=== PATIENT | male | born 1985 | race Two or more races ===

== ENCOUNTER 2020-04-08 15:52 | Outpatient (REF) | payer OTHER, SELFPAY | END 2020-04-08 15:53 | disposition home or self-care (01) | LOC: HO.LNP 15:52 | PROVIDERS: Visit Provider Physician Assistant Medical | DX: Z20.822 Contact with and (suspected) exposure to COVID-19 (principal) | CPT/HCPCS: U0003 ==

== ENCOUNTER 2025-02-19 15:17 | Emergency (ER) | payer MEDICAID, SELFPAY ==
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
[2025-02-19] VITALS (10 sets, daily range): BP systolic 66–135; BP diastolic 33–77; PULSE 40–66; RESP 12–20; TEMP 36.5–36.6; O2SAT 99–100; BMI 25.3
--- NOTE | ~2025-02-19 | XR_ITS ---
EXAMINATION: XR CHEST CLINICAL INFORMATION: weakness COMPARISON: None available. TECHNIQUE: AP portable view of the chest was obtained. FINDINGS: The cardiac, hilar, and mediastinal contours are normal. The lungs are clear bilaterally. No pneumothorax or effusion. No focal osseous or soft tissue abnormality. XR/XR chest 1V IMPRESSION: No active pulmonary disease. Electronically signed by: Toan Cummings MD 02/19/2025 04:20 PM [facility]
--- NOTE | 2025-02-19 15:17 | ED_ITS ---
HPI - General Adult General Chief complaint: General Medical Stated complaint: Lethargic Time Seen by Provider: 02/19/25 16:09 Source: patient, RN notes reviewed and old records reviewed Mode of arrival: ambulatory Limitations: no limitations History of Present Illness ED Provider: Debbie Guidry PA-C HPI narrative: 39-year-old female found to be hypotensive and bradycardic during a pre- appointment visit elsewhere and was sent to the ED for evaluation. Initial vitals in ED: BP 112/70 mmHg, HR 42 bpm. She reports having been awake >24 hours after working a 3 PM?7:15 AM overnight shift and had not slept before coming in. Denies pain, headache, dizziness, shortness of breath, fever, chills, urinary symptoms, recent illness, or recent falls. She notes diarrhea and feeling very tired. No daily prescription medications. No prior history of significant hypotension. Substance use: admits intranasal fentanyl and methadone use; denies IV drug use. Urine tox initially positive for fentanyl, methadone, and cocaine; repeat sample negative. She agrees to speak with a heel seat laster. No known past medical history; no regular medications; no surgical history; allergies (details not specified). Review of Systems: ? Constitutional: positive for fatigue; denies fever or chills. ? Cardiovascular: denies chest pain or palpitations. ? Respiratory: denies shortness of breath. ? Gastrointestinal: positive for diarrhea; denies abdominal pain. ? Genitourinary: denies dysuria or other urinary symptoms. ? Neurologic: denies headache or dizziness. ? Musculoskeletal: no recent falls. ? Psychiatric: denies suicidal or homicidal ideation. Related Data Allergies Allergy/AdvReac Type Severity Reaction Status Date / Time No Known Allergies Allergy Verified 02/19/25 15:23 Review of Systems 2 Review of Systems: Yes all other systems are reviewed and are negative PMFSH Past Medical History Attestation statement: The following information was validated with the patient. Source: old records reviewed and nursing notes reviewed Social History Social History Smoked in Last 30 Days: Yes Use of substances other than those prescribed or required for medical reasons: No Advance Directives: No Advance Directives Information Provided: No Do you have a plan to hurt others: No Plan Patient : No Physical Exam ED Exam Exam: ? General: tired-appearing female, arousable, no acute distress. ? HEENT: mucous membranes dry; extra-ocular movements intact; baseline left ?lazy? eye, vision otherwise grossly intact. Pupils pinpoint 3mm each ? Neck: supple, no thyromegaly. ? Cardiovascular: bradycardic then improving to normal rate; regular rhythm; no murmurs noted. ? Respiratory: clear to auscultation bilaterally; no respiratory distress. ? Abdomen: soft, non-tender, no organomegaly. ? Neurologic: alert when aroused, oriented; cranial nerves II-XII grossly intact; strength 5/5 upper and lower extremities; sensation intact; negative [id number] testing. ? Extremities: no edema. ? Skin: warm, dry. ? Psych: cooperative, appropriate; denies SI/HI. Vital Signs: Vital Signs - 24 hr 02/19/25 15:21 02/19/25 15:25 02/19/25 17:00 Temperature 97.7 F 97.7 F Pulse Rate 42 L 42 L 40 L Respiratory Rate 12 12 Blood Pressure 112/70 112/70 86/38 L Pulse Oximetry 99 99 Oxygen Delivery Method Room Air Room Air 02/19/25 17:01 02/19/25 17:01 02/19/25 17:33 Temperature Pulse Rate 52 54 47 L Respiratory Rate 12 Blood Pressure 72/35 L 66/33 L 127/73 Pulse Oximetry Oxygen Delivery Method 02/19/25 17:46 02/19/25 17:53 02/19/25 20:07 Temperature 97.7 F Pulse Rate 54 50 44 L Respiratory Rate 18 20 16 Blood Pressure 135/74 129/67 132/71 Pulse Oximetry 100 100 100 Oxygen Delivery Method Room Air Room Air Room Air 02/19/25 21:01 Temperature Pulse Rate 66 Respiratory Rate Blood Pressure 132/70 Pulse Oximetry Oxygen Delivery Method BMI result Body Mass Index 25.3 Course Course Course Narrative: Rapid medical examination performed in triage by Sadie Navarrete PA-C: Patient is a 39 year old assigned female at presenting to the emergency department with lethargy. Patient was at [employer] and work connection falling asleep mid sentence and being lethargic. Work connection stated the patient's blood pressure was low and heart rate was low. Detailed physical exam and review of systems are deferred to the home school liaison officer. EKG and labs ordered. Patient placed in a room. Medications Administered Discontinued Medications Generic Name Dose Route Start Last Admin Trade Name Adam PRN Reason Stop Dose Admin Lactated Ringer's 2,133 mls @ 2,133 mls/hr 02/19/25 16:33 02/19/25 17:53 Lr 30 ml/kg infuse over 1 hr (2133 ml) 02/19/25 17:32 Infused IV Infusion .Q1H ONE Lactated Ringer's 1,000 mls @ 999 mls/hr 02/19/25 19:14 02/19/25 20:20 Lr IV 02/19/25 20:14 Infused .Q1H1M ONE Infusion Naloxone HCl 8 mg 02/19/25 21:03 02/19/25 21:25 Naloxone Hcl Nasal Take Home 4 Mg Richardson NOSTRILALT 02/19/25 21:04 8 mg ONCE ONE Administration Medical Decision Making Medical Decision Making [facility] Narrative: 1635: Hypotensive but does not appear septic, will order lactic and 30 cc/hr suspected potentially due to severe dehydration does not appear sick 191: lactate normal. BP supine 122/50, sitting 96/50- will give another bolus of fluids, she appears more alert and not as tired from when she first arrived. Patient insisted on being able to provide another urine sample: she admitted to me last use of snorting fentanyl and methadone was 2-3 days ago and that she has never done cocaine. Her repeat urine tox screen was reeder negative. I do not have a better explaination for this. Patient then retracted her earlier statement of me stating that she does not do drugs. 39-year-old female with orthostatic hypotension and bradycardia likely multifactorial from dehydration, prolonged wakefulness, and recent polysubstance exposure. Vitals improved with IV fluids. No evidence of infection or metabolic derangement. Discharge planned once stable with Narcan kit and follow-up resources. Problem #1: Orthostatic hypotension / dehydration with bradycardia Assessment: Hypotension (BP as low as 66/33) and bradycardia (HR 42) on presentation, improved after two IV fluid boluses; last three BP readings normal, HR 63. BP 122/70 Plan: * IV normal saline boluses x2 given with good response. * Monitor orthostatic vitals until stable (completed in ED). * Discharge home once stable. * Return precautions for recurrent light-headedness, syncope, chest pain, or dyspnea. Problem #2: Polysubstance exposure (fentanyl, methadone, cocaine) Assessment: Initial urine toxicology positive for fentanyl, methadone, and cocaine; patient admits intranasal fentanyl/methadone use; denies IV use. Plan: * Provided Narcan for take-home use on discharge. * Offered heel seat laster / substance use counseling; patient accepted. Problem #3: Fatigue Assessment: Likely secondary to prolonged wakefulness and dehydration. Plan: * Address contributing factors as above. Medical Decision Making (MDM) Summary of Presentation & Initial Concerns: 39-year-old female presented after being found hypotensive and bradycardic during a pre-appointment visit. Initial ED vitals: BP 112/70 mmHg, HR 42 bpm. She reported fatigue, >24 hours of wakefulness after overnight shift, and recent intranasal fentanyl and methadone use. She also noted diarrhea. No chest pain, shortness of breath, fever, or dizziness. Initial urine toxicology positive for fentanyl, methadone, and cocaine; repeat negative. No prior history of significant hypotension or bradycardia. Differential Diagnosis Considered: * Dehydration (supported by dry mucous membranes, history of poor oral intake, and improvement with fluids) * Sleep deprivation (prolonged wakefulness contributing to fatigue and hemodynamic instability) * Drug effects (recent fentanyl, methadone, and possible cocaine exposure) * Infection (ruled out by lack of fever, chills, and negative labs) * Metabolic derangement (mild metabolic acidosis on VBG, otherwise unremarkable) * Cardiac conduction abnormality (no prior history, no symptoms, and no evidence of arrhythmia) Diagnostic Workup Performed: * Serial orthostatic vital signs (supine, sitting, standing) * CBC (no leukocytosis, no anemia) * VBG (HCO? 20 mmol/L, mild metabolic acidosis) * CMP (pending) * Urinalysis (negative for infection) * Urine toxicology (initially positive for fentanyl, methadone, cocaine; repeat negative) * test (pending) * Viral panel (COVID/Influenza/RSV pending) Interpretation of Results: * No evidence of infection (normal WBC, negative urinalysis) * No anemia * Mild metabolic acidosis (HCO? 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 Patient provided with Narcan kit, education on return precautions, and referral for substance use counseling. No acute medical issues requiring admission identified. Complexity of Data Reviewed, Risk Assessment, and Time Spent: Extensive review of laboratory data (CBC, VBG, CMP, urinalysis, urine toxicology), serial vital signs, and physical exam findings. Risk assessment included evaluation for cardiac, metabolic, and infectious etiologies. Time spent counseling patient regarding diagnosis, management, substance use risks, and coordination of care with heel seat laster. Overall, moderate complexity due to multiple data points, polysubstance exposure, and need for risk mitigation. Differential Diagnosis Differential Diagnoses: The differential diagnosis associated with the presentation includes See [facility] Admission/Observation Consideration of admission/observation: Escalation of care including admission/observation considered Lab Data [facility] Lab Attestation statement: I reviewed the patient's lab results. ? CBC: no leukocytosis, no anemia. ? VBG: HCO? 20 mmol/L; otherwise normal. ? Lactate: 1.4 mmol/L. ? CMP pending. ? T4: 6.3 ?g/dL. ? POC glucose 112 mg/dL. ? Urinalysis negative for infection. ? Urine toxicology: initial positive for fentanyl, methadone, cocaine; repeat sample negative. ? test pending. ? COVID/Influenza/RSV testing pending. 02/19/25 15:29 02/19/25 17:06 Labs: Lab Results 02/19/25 02/19/25 02/19/25 Range/Units 15:29 15:35 16:06 WBC 7.0 (4.8-10.8) X10*3/uL RBC 4.81 (4.20-5.50) X10*6/uL Hgb 14.9 (12.0-16.0) g/dl Hct 45.7 (37.0-47.0) % MCV 95.0 (80.0-98.0) fL MCH 31.0 (27.0-33.0) pg MCHC 32.6 (31.0-35.0) g/dl RDW 13.2 (11.0-16.0) % Plt Count 180 (160-400) X10*3/uL MPV 11.7 (9.4-12.3) fL Immature Gran % (Auto) 0.1 (0.0-0.4) % Neut % (Auto) 43.8 L (45-73) % Lymph % (Auto) 42.9 H (20-40) % [place] % (Auto) 7.5 (2-11) % Eos % (Auto) 5.0 H (0-4) % Baso % (Auto) 0.7 (0-2) % Lymph # (Auto) 3.0 (1.2-4.9) X10*3/uL [place] # (Auto) 0.5 (0.1-1.2) X10*3/uL Eos # (Auto) 0.4 (0.0-0.4) X10*3/uL Baso # (Auto) 0.1 (0.0-0.2) X10*3/uL Abs Immat Gran (auto) 0.01 (0.00-0.03) X10*3/uL Absolute Neuts (auto) 3.0 (2.0-8.3) x10*3/uL Absolute Nucleated RBC 0.000 (0.0-0.012) X10*3/uL Nucleated RBC % (auto) 0.0 (0.0-0.2) /100WBC VBG pH 7.42 (7.32-7.43) VBG pCO2 31 mmHg VBG pO2 57 mmHg VBG HCO3 20 L (22-26) mmol/L VBG O2 Saturation 87.0 % VBG Base Excess -2.5 mmol/L Sodium (135-145) mmol/L Potassium (3.3-5.1) mmol/L Chloride (96-108) mmol/L Carbon Dioxide (22-29) mmol/L Anion Gap (12-20) BUN (9-16) mg/dL Creatinine (0.5-1.4) mg/dL Estim Creat Clear Calc Estimated GFR POC Glucose 112 (60-115) mg/dL Random Glucose (60-115) mg/dL Lactic Acid (0.5-2.0) mmol/L Calcium (8.4-10.2) mg/dL Magnesium (1.6-2.6) mg/dL Total Bilirubin (0.0-1.0) mg/dL AST (5-31) U/L ALT (0-31) U/L Alkaline Phosphatase (39-117) U/L Troponin I High Sens 3.1 (<3.5-17.0) ng/L Total Protein (6.5-8.0) g/dL Albumin (3.5-5.0) g/dL Beta HCG, Quant mIU/mL Urine Color Urine Appearance Urine pH (5.0-9.0) Ur Specific [place] (1.005-1.025) Urine Protein (Neg-Trace) mg/dL Urine Glucose (UA) (Negative) mg/dL Urine Ketones (Negative) mg/dL Urine Blood (Negative) Urine Nitrite (Negative) Ur Leukocyte Esterase (Negative) Urine Opiates Screen (Not Detect) Ur Buprenorphine Scrn (Not Detect) ng/mL Ur Oxycodone Screen (Not Detect) ng/mL Urine Methadone Screen (Not Detect) ng/mL Urine Fentanyl Screen (Not Detect) Ur Barbiturates Screen (Not Detect) Ur Phencyclidine Scrn (Not Detect) Ur Amphetamines Screen (Not Detect) U Benzodiazepines Scrn (Not Detect) Urine Cocaine Screen (Not Detect) U Marijuana (THC) Screen (Not Detect) Influenza Type A (PCR) NEGATIVE (Negative) Influenza Type B (PCR) NEGATIVE (Negative) RSV RNA Qual (PCR) NEGATIVE (Negative) SARS-CoV-2 RNA (RT-PCR) NEGATIVE (Negative) 02/19/25 02/19/25 02/19/25 Range/Units 16:41 17:06 17:54 WBC (4.8-10.8) X10*3/uL RBC (4.20-5.50) X10*6/uL Hgb (12.0-16.0) g/dl Hct (37.0-47.0) % MCV (80.0-98.0) fL MCH (27.0-33.0) pg MCHC (31.0-35.0) g/dl RDW (11.0-16.0) % Plt Count (160-400) X10*3/uL MPV (9.4-12.3) fL Immature Gran % (Auto) (0.0-0.4) % Neut % (Auto) (45-73) % Lymph % (Auto) (20-40) % [place] % (Auto) (2-11) % Eos % (Auto) (0-4) % Baso % (Auto) (0-2) % Lymph # (Auto) (1.2-4.9) X10*3/uL [place] # (Auto) (0.1-1.2) X10*3/uL Eos # (Auto) (0.0-0.4) X10*3/uL Baso # (Auto) (0.0-0.2) X10*3/uL Abs Immat Gran (auto) (0.00-0.03) X10*3/uL Absolute Neuts (auto) (2.0-8.3) x10*3/uL Absolute Nucleated RBC (0.0-0.012) X10*3/uL Nucleated RBC % (auto) (0.0-0.2) /100WBC VBG pH (7.32-7.43) VBG pCO2 mmHg VBG pO2 mmHg VBG HCO3 (22-26) mmol/L VBG O2 Saturation % VBG Base Excess mmol/L Sodium 137 (135-145) mmol/L Potassium 4.6 (3.3-5.1) mmol/L Chloride 108 (96-108) mmol/L Carbon Dioxide 25 (22-29) mmol/L Anion Gap 9 L (12-20) BUN 10 (9-16) mg/dL Creatinine 0.82 (0.5-1.4) mg/dL Estim Creat Clear Calc 84.5 Estimated GFR > 60 POC Glucose (60-115) mg/dL Random Glucose 101 (60-115) mg/dL Lactic Acid 1.4 (0.5-2.0) mmol/L Calcium 9.1 (8.4-10.2) mg/dL Magnesium 1.9 (1.6-2.6) mg/dL Total Bilirubin 0.5 (0.0-1.0) mg/dL AST 19 (5-31) U/L ALT 14 (0-31) U/L Alkaline Phosphatase 73 (39-117) U/L Troponin I High Sens (<3.5-17.0) ng/L Total Protein 6.3 L (6.5-8.0) g/dL Albumin 3.9 (3.5-5.0) g/dL Beta HCG, Quant < 2 mIU/mL Urine Color Yellow Urine Appearance Clear Urine pH 6.5 (5.0-9.0) Ur Specific [place] <= 1.005 (1.005-1.025) Urine Protein Negative (Neg-Trace) mg/dL Urine Glucose (UA) Negative (Negative) mg/dL Urine Ketones Negative (Negative) mg/dL Urine Blood Negative (Negative) Urine Nitrite Negative (Negative) Ur Leukocyte Esterase Negative (Negative) Urine Opiates Screen POSITIVE H (Not Detect) Ur Buprenorphine Scrn Not Detected (Not Detect) ng/mL Ur Oxycodone Screen Not Detected (Not Detect) ng/mL Urine Methadone Screen Positive H (Not Detect) ng/mL Urine Fentanyl Screen POSITIVE H (Not Detect) Ur Barbiturates Screen Not Detected (Not Detect) Ur Phencyclidine Scrn Not Detected (Not Detect) Ur Amphetamines Screen Not Detected (Not Detect) U Benzodiazepines Scrn Not Detected (Not Detect) Urine Cocaine Screen POSITIVE H (Not Detect) U Marijuana (THC) Screen Not Detected (Not Detect) Influenza Type A (PCR) (Negative) Influenza Type B (PCR) (Negative) RSV RNA Qual (PCR) (Negative) SARS-CoV-2 RNA (RT-PCR) (Negative) 02/19/25 Range/Units 19:25 WBC (4.8-10.8) X10*3/uL RBC (4.20-5.50) X10*6/uL Hgb (12.0-16.0) g/dl Hct (37.0-47.0) % MCV (80.0-98.0) fL MCH (27.0-33.0) pg MCHC (31.0-35.0) g/dl RDW (11.0-16.0) % Plt Count (160-400) X10*3/uL MPV (9.4-12.3) fL Immature Gran % (Auto) (0.0-0.4) % Neut % (Auto) (45-73) % Lymph % (Auto) (20-40) % [place] % (Auto) (2-11) % Eos % (Auto) (0-4) % Baso % (Auto) (0-2) % Lymph # (Auto) (1.2-4.9) X10*3/uL [place] # (Auto) (0.1-1.2) X10*3/uL Eos # (Auto) (0.0-0.4) X10*3/uL Baso # (Auto) (0.0-0.2) X10*3/uL Abs Immat Gran (auto) (0.00-0.03) X10*3/uL Absolute Neuts (auto) (2.0-8.3) x10*3/uL Absolute Nucleated RBC (0.0-0.012) X10*3/uL Nucleated RBC % (auto) (0.0-0.2) /100WBC VBG pH (7.32-7.43) VBG pCO2 mmHg VBG pO2 mmHg VBG HCO3 (22-26) mmol/L VBG O2 Saturation % VBG Base Excess mmol/L Sodium (135-145) mmol/L Potassium (3.3-5.1) mmol/L Chloride (96-108) mmol/L Carbon Dioxide (22-29) mmol/L Anion Gap (12-20) BUN (9-16) mg/dL Creatinine (0.5-1.4) mg/dL Estim Creat Clear Calc Estimated GFR POC Glucose (60-115) mg/dL Random Glucose (60-115) mg/dL Lactic Acid (0.5-2.0) mmol/L Calcium (8.4-10.2) mg/dL Magnesium (1.6-2.6) mg/dL Total Bilirubin (0.0-1.0) mg/dL AST (5-31) U/L ALT (0-31) U/L Alkaline Phosphatase (39-117) U/L Troponin I High Sens (<3.5-17.0) ng/L Total Protein (6.5-8.0) g/dL Albumin (3.5-5.0) g/dL Beta HCG, Quant mIU/mL Urine Color Urine Appearance Urine pH (5.0-9.0) Ur Specific [place] (1.005-1.025) Urine Protein (Neg-Trace) mg/dL Urine Glucose (UA) (Negative) mg/dL Urine Ketones (Negative) mg/dL Urine Blood (Negative) Urine Nitrite (Negative) Ur Leukocyte Esterase (Negative) Urine Opiates Screen Not Detected (Not Detect) Ur Buprenorphine Scrn Not Detected (Not Detect) ng/mL Ur Oxycodone Screen Not Detected (Not Detect) ng/mL Urine Methadone Screen Not Detected (Not Detect) ng/mL Urine Fentanyl Screen Not Detected (Not Detect) Ur Barbiturates Screen Not Detected (Not Detect) Ur Phencyclidine Scrn Not Detected (Not Detect) Ur Amphetamines Screen Not Detected (Not Detect) U Benzodiazepines Scrn Not Detected (Not Detect) Urine Cocaine Screen Not Detected (Not Detect) U Marijuana (THC) Screen Not Detected (Not Detect) Influenza Type A (PCR) (Negative) Influenza Type B (PCR) (Negative) RSV RNA Qual (PCR) (Negative) SARS-CoV-2 RNA (RT-PCR) (Negative) Independent Interpretation I performed an independent interpretation of an: EKG and Plain X-Ray Interpretation: Sinus eh 43 bpm, no HB. NO ischemia. CXR: no acute findings Radiology Impression Discussion of test interpretation with radiology: I have reviewed the radiologist's reading. Radiologist Impression: No active pulmonary disease. Tests considered The following testing was considered but not selected: See MDM Prescription Management I considered prescription management with: Other Chronic Conditions Patient?s care impacted by: Other Social Determinants Patient?s care significantly limited by Social Determinants of Health including: Alcoholism and drug addiction in family and Other Social Determinant of Health Critical Care Time Critical Care Time Critical Care Time: Yes Total Critical Care Time: 40 Attestation: This patient required critical care. Due to the fact that the patient required a significant amount of one on one physician ? patient contact time, ordering and review of studies, arranging urgent treatment with development of a management plan, evaluation of patient?s response to treatment with frequent reassessments, and discussions with other providers this patient required critical care time in excess of 30 minutes. Critical care time was indicated due to the inherent instability and/or potential for instability in this patient. The critical care time that is allocated to this patient is above and beyond any time spent on any other billable procedures performed on this patient. Discharge Plan Discharge Clinical Impression: Acute dehydration, Orthostatic hypotension, Opiate use Patient Disposition: Home, Self-Care Instructions: Dehydration (ED), Hypotension (DC) Additional Instructions: Discharge Instructions for Orthostatic Hypotension and Substance Use Please read these instructions carefully and keep them for your reference. What happened in the emergency department: You came to the emergency department with very low blood pressure and a slow heart rate. When you stood up, your blood pressure dropped significantly (orthostatic hypotension). This was most likely caused by a combination of d ehydration, lack of sleep after working overnight, and recent substance use (intranasal fentanyl and methadone). You received intravenous (IV) fluids, which helped your blood pressure and heart rate return to normal levels. You are now stable for discharge home. Instructions for recovering from dehydration and orthostatic hypotension: Hydration and nutrition: - Drink 2 to 3 liters (approximately 8 to 12 cups) of water or fluids daily to maintain adequate hydration. Staying well-hydrated is essential to prevent your blood pressure from dropping when you stand. - Increase your salt intake to help maintain your blood volume and blood pressure. Add salt liberally to your meals or consider using salt tablets. Aim for approximately 1 to 2 teaspoons of extra salt per day unless you have heart failure, kidney disease, or high blood pressure (discuss with your doctor if you have these conditions). - Eat frequent, small meals rather than large meals, as large meals can cause your blood pressure to drop further. - Drink 16 ounces (about 500 mL) of water rapidly if you feel lightheaded or dizzy, as this can temporarily raise your blood pressure within 30 minutes Position changes and physical maneuvers: - Rise slowly from lying or sitting positions. Sit at the edge of the bed for a few minutes before standing, and pause when going from sitting to standing. - Sleep with the head of your bed elevated (about 4 to 6 inches), which can help reduce overnight fluid loss and morning dizziness. - If you feel lightheaded when standing, perform physical counterpressure maneuvers such as crossing your legs and tensing your leg muscles, squatting, or making a tight fist. These can temporarily increase your blood pressure. Lifestyle modifications: - Avoid hot, humid environments and prolonged standing, as these can worsen your symptoms. - Get adequate rest and sleep to prevent fatigue-related drops in blood pressure. Avoid staying awake for more than 24 hours. - Stay physically active with regular exercise to prevent deconditioning, but avoid sudden position changes during exercise - Avoid or limit alcohol, as it can worsen dehydration and low blood pressure. Important safety information about opioid use and overdose prevention: You received Narcan (naloxone) nasal spray to take home. Naloxone is a life- saving medication that can reverse an opioid overdose. Recognizing an opioid overdose - Call 911 immediately if someone: - Cannot be awakened or is extremely sleepy - Is not breathing well or breathing has stopped - Has a very slow heartbeat or no heartbeat - Has blue or purple lips or fingernails - Has a face that is extremely pale or feels clammy - Is making gurgling noises or vomiting - Their body goes limp How to use Narcan (naloxone) nasal spray: 1. Check the person: Try to wake them up by yelling and gently shaking them 2. Give the first dose: - Hold the nasal spray with your thumb on the bottom of the plunger - Insert the nozzle into one nostril - Press the plunger firmly to spray once 3. Call 911 immediately after giving the first dose 4. Wait 2 to 3 minutes for the medication to work 5. If the person does not wake up, give another dose in the other nostril every 2 to 3 minutes until they wake up or the ambulance arrives 6. Turn the person on their side after giving naloxone 7. Stay with the person until emergency help arrives, even if they wake up Important warnings about opioid and methadone use: - Fentanyl and methadone are extremely dangerous when used together or with other substances. Both can cause severe breathing problems leading to . - Methadone has unique cardiac risks, including abnormal heart rhythms that can be fatal. This risk increases with higher doses and when combined with other drugs. - Never use opioids alone. Always have someone with you who has Narcan and knows how to use it. - Avoid mixing opioids with alcohol, benzodiazepines, or cocaine, as this dramatically increases overdose risk. Substance use counseling and support resources: You accepted referral to a heel seat laster and substance use counseling - this is an important step. Research shows that people who receive substance use support after an emergency department visit are much more likely to successfully engage in treatment and reduce their risk of overdose. Available resources include: - Medications for opioid use disorder (MOUD) such as buprenorphine, which can significantly reduce overdose risk and cravings - Behavioral health counseling and psychosocial support - Peer recovery support programs - [facility] National Helpline: 7-226-371-HELP ([phone]) - Free, confidential, 08/10 treatment referral service When to return to the emergency department - Seek immediate medical care if you experience: Related to orthostatic hypotension: - Fainting or loss of consciousness - Severe lightheadedness or dizziness that does not improve with sitting or lying down - Falls or injuries - Chest pain or pressure - Shortness of breath or difficulty breathing - Severe headache - Confusion or difficulty speaking - Ongoing vomiting or inability to keep fluids down Related to substance use: - Any signs of opioid overdose (see above) - Severe withdrawal symptoms - Chest pain or irregular heartbeat - Severe anxiety or agitation Follow-up care: You should follow up with a primary care provider within 1 to 2 weeks to: - Monitor your blood pressure and heart rate, including orthostatic vital signs - Review your medications and ensure none are contributing to low blood pressure - Discuss ongoing management of orthostatic hypotension if symptoms persist - Continue substance use disorder treatment planning and support - Address any underlying medical conditions that may have contributed to your symptoms If you do not have a primary care provider, contact your local health department or [facility] for assistance establishing care. Important reminders: - Keep Narcan readily available at all times and make sure people around you know where it is and how to use it - Monitor your daily weight to ensure you are maintaining adequate hydration (sudden weight loss may indicate dehydration) - Follow up with substance use counseling as recommended - Stay hydrated and increase salt intake as instructed above - Rise slowly from sitting or lying positions - Call 911 for any medical emergency Questions? If you have questions about these instructions or your care, please contact your primary care provider or return to the emergency department. Your health and safety are important. Please follow these instructions and seek help when you need it. Referrals: [facility] [Outside] Referral Note: original DS lilli (4) positive, second clean, sent home with narcan Interventions: ED Discharge Assessment Last Done: 02/19/25 21:27 Discharge Date/Time: 02/19/25 21:28 Print Language: Sri Lankan
--- NOTE | 2025-02-19 15:19 | ECG_ITS ---
Test Reason : lethargy Blood Pressure : */* mmHG Vent. Rate : 43 BPM Atrial Rate : 43 BPM P-R Int : 144 ms QRS Dur : 72 ms QT Int : 510 ms P-R-T Axes : 64 -4 43 degrees QTcB Int : 430 ms Marked sinus bradycardia Possible Left atrial enlargement Septal infarct , age undetermined Abnormal ECG No previous ECGs available Referred By: Sadie Navarrete Electronically Signed By: KRYSTIAN BLAKELY
[2025-02-19 15:36] LABS: MANUAL DIFF FLAG NO
[2025-02-19 15:39] LABS: Venous Blood Gas Refer to POC result
[2025-02-19 15:40] LABS: VBG HCO3 20 mmol/L (22-26); VBG O2 % Saturation 87.0 %
[2025-02-19 15:40] LABS: Hematocrit 45.7 % (37.0-47.0); Hemoglobin 14.9 g/dl (12.0-16.0); Imm Gran Abs Auto 0.01 X10*3/uL (0.00-0.03); Imm Gran Pct Auto 0.1 % (0.0-0.4); Lymphocytes Absolute Auto 3.0 X10*3/uL (1.2-4.9); Mean Corpuscular HGB Conc 32.6 g/dl (31.0-35.0); Mean Corpuscular Hemoglobin 31.0 pg (27.0-33.0); Mean Corpuscular Volume 95.0 fL (80.0-98.0); NRBC Abs Auto 0.000 X10*3/uL (0.0-0.012); NRBC Pct Auto 0.0 /100WBC (0.0-0.2); Platelet Count 180 X10*3/uL (160-400); Red Blood Count 4.81 X10*6/uL (4.20-5.50); White Blood Count 7.0 X10*3/uL (4.8-10.8)
[2025-02-19 16:09] LABS: Glucose, Whole Blood 112 mg/dL (60-115)
[2025-02-19 16:32] LABS: Resp Syncy Virus RNA Qual PCR NEGATIVE (Negative); SARS COV2 PCR INHOUSE NEGATIVE (Negative)
[2025-02-19] MEDS: LACTATED RINGERS 2133 ML IV (16:52)
[2025-02-19 17:12] LABS: Troponin-I High Sensitivity 3.1 ng/L (<3.5-17.0)
[2025-02-19 17:34] LABS: Alanine Aminotransferase 14 U/L (0-31); Albumin Level 3.9 g/dL (3.5-5.0); Alkaline Phosphatase 73 U/L (39-117); Anion Gap 9 (12-20); Aspartate Amino Transferase 19 U/L (5-31); Blood Urea Nitrogen 10 mg/dL (9-16); Calcium 9.1 mg/dL (8.4-10.2); Carbon Dioxide 25 mmol/L (22-29); Chloride 108 mmol/L (96-108); Creatinine Clr Calc Pharmacy 84.5; Estimated Glomerular Filt Rate > 60; Magnesium 1.9 mg/dL (1.6-2.6); Potassium 4.6 mmol/L (3.3-5.1); Sodium 137 mmol/L (135-145); Total Protein 6.3 g/dL (6.5-8.0)
[2025-02-19 18:10] LABS: Appearance Urine Clear; Glucose Urine UA Negative (Negative); PH 6.5 (5.0-9.0); Specific Gravity - Urine <= 1.005 (1.005-1.025)
[2025-02-19 18:19] LABS: Cannabinoid Screen Urine Not Detected (Not Detect)
[2025-02-19] MEDS: Lactated Ringers 1,000 ML 999 ML IV (19:19)
--- NOTE | 2025-02-19 19:26 | PC.NURSE ---
pt advised of UTOX results by provider, pt requests repeat UDS and there should not be drugs in my system PA notified - repeat urine sent
--- OUTSIDE RECORDS SUMMARY | 2025-02-19 19:37 | XMS_ITS | Clinical Summary ---
Author Organization [facility] Address [address] [place] [address] Phone Care Team Providers Care Aeronautical Project Engineer Name Role Phone Physician, No Pcp Primary Care Provider Unavaila ble Allergies No known active allergies Medications folic acid (FOLVITE) 1 mg tablet Take 1 tablet (1 mg total) by mouth 1 (one) time each day. 1 Active ondansetron ODT (ZOFRAN-ODT) 8 mg disintegrating tablet Take 1 tablet (8 mg total) by mouth every 8 hours as needed. 1 Active thiamine 100 mg tablet Take 1 tablet (100 mg total) by mouth daily. 1 Active Active Problems Problem Noted Date Diagnosed Date Altered mental status, unspe cified altered mental status type 11/11/2024 Assessment & Plan (11/11/2024 4:51 PM EDT): Opioid withdrawal Opioid use disorder Altered mental status likely due to opioid withdrawal. Patient tachycardic, tremulous, yawning, sweating, dilated pupils. Last dose of fentanyl was approximately 5 days ago. During her last admission she had a similar presentation. QTc 493. Despite the treatment patient still continues to have acute symptoms of withdrawal. - Buprenorphine as needed per [facility] protocol - Lorazepam if continuous agitation. 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 Patient tachycardic, tremulous, yawning, sweating, dilated pupils. Last dose of fentanyl was approximately 5 days ago. Last admission she also was minimally conversant. QTc 493 - Buprenorphine as needed per [facility] protocol - Repeat EKG for QTc KENRICK (acute kidney injury) ([facility] V24) 11/12/19 Assessment & Plan (11/11/2024 4:36 PM EDT): Creatinine 1.4 from baseline 0.7. KENRICK likely prerenal in the setting of dehydration given poor p.o. intake in the past few days. - Monitor BMP - F/U repeat lactate - Avoid nephrotoxic medications - s/p 3 L of fluids Assessment & Plan (11/11/2024 6:57 AM EDT): Creatinine 1.4 from baseline 0.7. KENRICK likely prerenal in the setting of dehydration given poor p.o. intake in the past few days. - Monitor BMP - Avoid nephrotoxic medications - s/p 2 L, start IVF continuous High anion gap metabolic acidosis 11/11/2024 Assessment & Plan (11/11/2024 4:36 PM EDT): Elevation of lactic acid Bicarbonate 17, anion gap 27, lactic acid initially 13, repeat 6.4. - Repeat BMP in the a.m. - F/U repeat lactate Assessment & Plan (11/11/2024 6:57 AM EDT): Elevation of lactic acid Bicarbonate 17, anion gap 27, lactic acid initially 13, repeat 6.4. - Repeat BMP in the a.m. - Repeat lactate Elevated WBC count 11/11/2024 Assessment & Plan (11/11/2024 4:51 PM EDT): Possible causes could be infection, or in the setting of dehydration. Patient has decreased PO intake and had a several episodes of vomiting. - Blood culture results are pending - Received IV Ceftriaxone empirically High risk human papilloma virus (HPV) infection of cervix 02/01/2022 AMS (altered mental status) 08/18/2021 High blood pressure 01/09/2021 Opiate withdrawal ([facility] V24, [facility] V28) 10/ Assessment & Plan (11/11/2024 6:57 AM EDT): As above Arrhythmia 01/08/2021 Chronic pain 07/17/2014 Resolved Problems Problem Noted Date Diagnosed Date Resolved Date Hypomagnesemia 11/11/2024 11/11/2024 Assessment & Plan (11/11/2024 4:36 PM EDT): Magnesium admission 1.6 - Replete as needed Assessment & Plan (11/11/2024 6:57 AM EDT): Magnesium admission 1.6 - Replete as needed Encounters Date Type Department Care Team Description 02/18/2025 3:47 PM EST - 02/18/2025 7:17 PM EST Emergency [facility] Emergency [address] [place] [id number] Thiago Wells, DO Intoxication with opioids, uncomplicated ([facility] V24, [facility] V28) (Primary Dx) Discharge Disposition: Home or Self Care from Last 3 Months Immunizations Immunization Administration Dates Next Due [employer] SARS-CoV-2 COVID -19, vector-nr, rS-Ad26, preservative free 11/16/2020 Social History Tobacco Use Types Packs/Day Years [...] Orientation Straight 09/07/2024 3: 30 PM EDT Obstetrics History * This document contains information received from the source organization and may not represent a complete record from that organization. Para Term AB IAB SAB Ectopic Multiple Livin g Live Births 5 4 4 1 1 Date Outcome GA Total Labor Labor/2nd/3rd Weight Sex Type Anes PTL Nina A1 A5 Name Clin 2002 Term Vag-S pont 2006 Term Vag-S pont 2009 Term Vag-S pont 2015 Term 38w 4d 4h 49m 4h 44m/0h 01m/0h 04m 2977 g (105 oz) F Vag-S pont [place] 9 9 Malaika magallon MD Complications:None Delivery Location[facility] Last Filed Vital Signs Vital Sign Reading Time Taken Comments Blood Pressure 146/76 02/18/2025 3:55 PM EST Pulse 49 02/18/2025 3:55 PM EST Temperature 36.8 C (98.2 F) 02/18/2025 3:55 PM EST Respiratory Rate 18 02/18/2025 3:55 PM EST Oxygen Saturation 97% 02/18/2025 3:55 PM EST Inhaled Oxygen Concentration - - Weight 75.8 kg (167 lb) 10/16/2024 4:45 AM EDT Height - - Body Mass Index - - Plan of Treatment Health Maintenance Due Date Last Done Comments Breast Cancer Screening 1983 Hepatitis A Vaccines (1 of 2 - Risk 2-dose series) 09/30/2002 Hepatitis B Vaccines (1 of 3 - 19+ 3-dose series) 09/30/2002 HPV Vaccines (1 - 3-dose SCDM series) 09/30/2010 Social Influencers of Health Screening 02/18/2022 Depression Screening 03/18/2024 COVID-19 Vaccine ( - 2024- season) 2024 06/13/2021, 11/16/2020 Influenza Vaccine (#1) 2024 01/15/2023, 2021 Hypertension/CHF/CAD Annual BMP Blood Test 11/13/2025 11/13/2024, 11/12/2024, 11/11/2024, Additional history exists Cervical Cancer Screening: HPV 10/14/2026 10/14/2021, 10/14/2021 Cholesterol Screening (Lipid Panel) 10/14/2026 10/14/2021, 10/14/2021, 10/14/2021 DTaP,Tdap,and Td Vaccines (4 - Td or Tdap) 04/10/2033 04/10/2023, 09/02/2015, 08/01/2015 RSV Immunization Adult Patients (1 - 1-dose 75+ series) 09/30/2058 HIV Screening Completed 08/02/2022 Hepatitis C Screening Completed 08/02/2022, 023 HIB Vaccines Aged Out No longer eligi ble based on patient's age to complete this topic IPV Vaccines Aged Out No longer eligi ble based on patient's age to complete this topic MMR Vaccines Aged Out No longer eligi ble based on patient's age to complete this topic Meningococcal ACWY Vaccine Aged Out N o longer eligible based on patient's age to complete this topic Meningococcal B Vaccine Aged Out No l onger eligible based on patient's age to complete this topic Pneumococcal Vaccine: Pediatrics (0 to 5 Years) and At-Risk Patients (6 to 49 Years) Aged Out No longer eligible based on patient's age to complete this topic RSV Immunization Patients Under 20 months Aged Out No longer eligible based on patient's age to complete this topic Varicella Vaccines Aged Out No longer eligible based on patient's age to complete this topic Procedures Procedure Name Priority Date/Time Associated Diagnosis Comments BASIC METABOLIC PANEL Timed 11/13/2024 6:36 AM EDT HEPATITIS C SCREENING Routine 08/02/2022 HIV SCREENING Routine 08/02/2022 HPV Routine 10/14/2021 LIPID PANEL Routine 10/14/2021 from Last 3 Months or Most Recently Relevant to Health Maintenance Results * (ABNORMAL) Basic metabolic panel (11/13/2024 6:36 AM EDT) Sodium 145 135 - 145 mmol/L LAB CHEMISTRY METHOD 11/13/2024 8:18 AM EDT [facility] Potassium 3.6 3.5 - 5.1 mmol/L LAB CHEMISTRY METHOD 11/13/2024 8:18 AM EDT [facility] Chloride 109(H) 98 - 107 mmol/L LAB CHEMISTRY METHOD 11/13/2024 8:18 AM EDT [facility] CO2 27 24 - 32 mmol/L LAB CHEMISTRY METHOD 11/13/2024 8:18 AM EDT [facility] Anion Gap 9 5 - 14 LAB CHEMISTRY METHOD 11/13/2024 8:18 AM EDT [facility] Glucose 121 70 - 199 mg/dL LAB CHEMISTRY METHOD 11/13/2024 8:18 AM EDT [facility] BUN 10 7 - 17 mg/dL LAB CHEMISTRY METHOD 11/13/2024 8:18 AM EDT [facility] Creatinine 0.60 0.50 - 1.00 mg/dL LAB CHEMISTRY METHOD 11/13/2024 8:18 AM EDT [facility] eGFR 116 >=60 mL/min/1. 73m2 LAB CHEMISTRY METHOD 11/13/2024 8:18 AM EDT [facility] Comment:Calculation based on the Chronic Kidney Disease Epidemiology Collaboration (CKD-EPI) equation refit without adjustment for race. BUN/Creatinine Ratio 16.7 12.0 - 20.0 LAB CHEMISTRY METHOD 11/13/2024 8:18 AM EDT [facility] Calcium 8.6 8.4 - 10.2 mg/dL LAB CHEMISTRY METHOD 11/13/2024 8:18 AM EDT [facility] Blood Venous blood specimen / Unknown Venipuncture / Unknown 11/13/2024 6:36 AM EDT 11/13/2024 7:48 AM EDT Luis Enrique Stearns MD LAB BLOOD ORDERABLES Final Re sult [facility] [address] [place] [address], [place] [phone] * HIV Screening (08/02/2022) HIV Screening abstracted Keovn Duran MD HEALTH MAINTENANCE Final Result * Hepatitis C Screening (08/02/2022) Hepatitis C Screening abstracted Historical Provider HEALTH MAINTENANCE Final Result * Cervical Cancer Screening: HPV (10/14/2021) Cervical Cancer Screening: HPV no interpretation , abstracted [facility] Provider HEALTH MAINTENANCE Final Result * Lipid panel (10/14/2021) LDL/HDL Ratio 0 Comment:no interpretation, a bstracted Triglycerides 0 mg/dL Comment:no interpretation, a bstracted Cholesterol 0 mg/dL Comment:no interpretation, a bstracted HDL 0 mg/dL Comment:no interpretation, a bstracted LDL Cholesterol 0 mg/dL Comment:no interpretation, a bstracted Blood Venous blood specimen / Unknown [facility] Provider LAB BLOOD ORDERABLES Socorro l Result from Last 3 Months or Most Recently Relevant to Health Maintenance Insurance [place] [employer] [place] Advance Directives * Full Code - Confirmed (Latest Code Status on File) Date Activated Date Inactivated Comments 11/11/2024 3:48 AM 11/13/2024 6:[address] [facility] was ascertained in the following way: Code status discussion: discussion with patient To update the patient's code status, place a code status order. Do not modify or discontinue any currently active code status orders. * Full Code - Confirmed Date Activated Date Inactivated Comments 10/15/2024 10:20 PM 10/18/2024 8:[address] [facility] was ascertained in the following way: Code status discussion: discussion with patient To update the patient's code status, place a code status order. Do not modify or discontinue any currently active code status orders. Care Teams Aeronautical Project Engineer Relationship Specialty Start Date End Date Physician, No Pcp PCP - General 10/15/24
--- OUTSIDE RECORDS SUMMARY | 2025-02-19 19:37 | XMS_ITS | Clinical Summary ---
Author Organization [facility] Address [address] [place] [address] Care Team Providers Care Parish Nurse Name Role Phone Pcp, Meeta FLOYD Primary Care Provider Unavailabl e Provider, [facility] Unavailable Unavailable Allergies No known active allergies Medications buprenorphine-n aloxone (SUBOXONE) 8-2 mg sublingual film Suboxone 8 mg-2 mg sublingual film Active amLODIPine (NORVASC) 5 mg tablet Take 1 tablet (5 mg total) by mouth daily. 30 tablet 2 Active ondansetron (Zofran) 4 mg tablet Take 1 tablet (4 mg total) by mouth every 8 (eight) hours as needed for nausea or vomiting. 10 tablet 2 Active Active Problems Problem Noted Date Diagnosed Date Elevated blood pressure reading 07/09/2021 Hypokalemia 07/09/2021 KENRICK (acute kidney injury) 07/08/2021 Assessment & Plan (07/08/2021 12:53 AM EDT): Patient presented with creatinine of 1.5. Baseline appears to be close to 0.8. Given decreased p.o. intake, as well as elevated BUN compared to baseline, likely prerenal in etiology. - IVF per above - BMP in AM - Avoid nephrotoxic agents Leukocytosis 07/08/2021 Assessment & Plan (07/08/2021 12:55 AM EDT): Patient is presenting with WBC of 15.6. Given all cell lines I increased, likely hemoconcentration. However, given multiple episodes of emesis, cannot rule out aspiration. Patient also has right upper quadrant tenderness, with low-grade temperature, and acute cholecystitis, or other infectious etiologies cannot be ruled out. - Monitor off abx - CBC in AM History of drug abuse 07/07/2021 Assessment & Plan (07/08/2021 12:52 AM EDT): Continue home Suboxone Arrhythmia 01/08/2021 Opioid use disorder, moderate, dependence 2019 Rhabdomyolysis 03/24/2019 Resolved Problems Problem Noted Date Diagnosed Date Resolved Date Intractable vomiting with na usea, unspecified vomiting type 07/07/2021 07/07/2024 Assessment & Plan (07/08/2021 12:54 AM EDT): Patient presented to the hospital with intractable nausea and vomiting, which has been ongoing x4 days. Patient is endorsing right upper quadrant tenderness with palpation, and cannot rule out biliary etiologies. Patient did have temperature of 100.3, and cannot rule out underlying infectious etiologies, including cholecystitis. Given these nonspecific GI symptoms, could be viral gastroenteritis. -Urine test ordered -Right upper quadrant ultrasound ordered -Continue to monitor off antibiotics at this time -IV fluids ordered -zofran and aprepitant for nausea Pulmonary congestion 03/30/2019 025 Influenza A 05/15/2015 07/07/2024 Immunizations Immunization Administration Dates Next Due Tdap 09/02/2015,08/01/2015 Social History Tobacco Use Types Packs/Day Years Used Date Smoking Tobacco: Never Smokeless Tobacco: Never Alcohol Use Standard Drinks/Week Comments Not Currently 0 (1 standard drink = 0.6 oz pur e alcohol) Hunger Vital Sign Answer Date Recorded Within the past 12 months, y ou worried that your food would run out before you got the money to buy more. Never true 07/08/19 22 Within the past 12 months, t he food you bought just didn't last and you didn't have money to get more. Never true 07/07/2021 Comments No Sex and Gender Information Value Date Recorded Sex Assigned at Not on file Legal Sex Female 1:21 AM EST Gender Identity Not on file Sexual Orientation Not on file Last Filed Vital Signs Vital Sign Reading Time Taken Comments Blood Pressure 129/97 09/01/2021 12:35 PM EDT Pulse 101 09/01/2021 12:35 PM EDT Temperature 36.8 C (98.2 F) 09/01/2021 12:35 PM EDT Respiratory Rate 20 09/01/2021 12:35 PM EDT Oxygen Saturation 96% 09/01/2021 12:35 PM EDT Inhaled Oxygen Concentration - - Weight 65.6 kg (144 lb 10 oz) 07/08/2021 2:00 PM EDT Height 154.9 cm (5' 1 ) 07/08/2021 2:00 PM EDT Body Mass Index 27.33 07/08/2021 2:00 PM EDT Plan of Treatment Health Maintenance Due Date Last Done Comments Breast Cancer Screening 1985 Hepatitis B Vaccines (1 of 3 - 19+ 3-dose series) 09/30/2002 Pap Smear 09/30/2004 HPV Vaccines (1 - 3-dose SCD M series) 09/30/2010 Cervical Cancer Screening 09/30/2013 HPV/Cotest 09/30/2013 COVID-19 Vaccine (3 - 2024-2 6 season) 2024 06/13/2021, 11/16/2020 Influenza Vaccine (#1) 2024 DTaP,Tdap,and Td Vaccines (3 - Td or Tdap) 09/01/2025 09/02/2015, 08/01/2015 Zoster Vaccines (1 of 2) 09/30/2033 HIV Screening Completed 01/09/2021 Hepatitis A Vaccines Aged Out No long er eligible based on patient's age to complete this topic MMR Vaccines Aged Out No longer eligi ble based on patient's age to complete this topic Meningococcal Vaccine Aged Out No kranthi kaz eligible based on patient's age to complete this topic Pneumococcal Vaccine: At-Ris k and Pediatric Patients (0 to 49 Years) Aged Out No longer eligible b ased on patient's age to complete this topic Insurance MEDICAID ALIX Singh [facility] Address: [facility] [id number] [place] [id number] Advance Directives For more information, please contact: [phone] * Full Code (Latest Code Status on File) Date Activated Date Inactivated Comments 07/08/2021 1:00 AM 07/09/2021 9:13 PM * Full Code Date Activated Date Inactivated Comments 07/07/2021 10:41 PM 07/08/2021 12:59 AM Care Teams Parish Nurse Relationship Specialty Start Date End Date PcpMeeta MD [address] [place] [address] PCP - General Internal Medicine 04/11/21 Provider, [facility] 10/23/21
--- OUTSIDE RECORDS SUMMARY | 2025-02-19 19:37 | XMS_ITS | Clinical Summary ---
Author Organization [facility] Address [address] [place] [id number] Care Team Providers Care Management Aide Name Role Phone Shraddha Gómez NP Primary Care Provider Allergies No known active allergies Medications * This document contains information received from the source organization and may not represent a complete record from that organization. buprenorphine-n aloxone (SUBOXONE) 8-2 mg per SL film Place 1 Film under the tongue 2 times a day. Max Daily Amount: 2 Film Active cetirizine (ZyrTEC) 10 MG tabletIndicatio ns:Allergic dermatitis Take 1 tablet (10 mg total) by mouth daily. 30 tablet 12/13/2024 Active famotidine (PEPCID) 40 MG tabletIndicatio ns:Allergic dermatitis Take 1 tablet (40 mg total) by mouth nightly. 10 tablet 12/13/2024 Active diphenhydrAMINE (BENADRYL) 50 MG tabletIndicatio ns:Allergic dermatitis Take 1 tablet (50 mg total) by mouth 4 times daily (every 6 hours) as needed for itching or allergies. 30 tablet 12/13/2024 Active predniSONE (DELTASONE) 20 MG tabletIndicatio ns:Allergic dermatitis Take 2 tablets (40 mg total) by mouth daily. 10 tablet 12/13/2024 Active Active Problems Problem Noted Date Diagnosed Date High anion gap metabolic acidosis 11/11/2024 History of cervical dysplasia 04/12/2023 Overview (12/13/2024): Plan pap 2010 LEEP; offer CL q2wks 14-24wks incl w/ anatomy scan 06/23/15 CL WNL @24 weeks Plan pap 2010 LEEP; offer CL q2wks 14-24wks incl w/ anatomy scan 06/23/15 CL WNL @24 weeks Tobacco user 04/12/2023 Overview (12/13/2024): 09/22/15 still not smoking 08/31/15: still not smoking but BF is 08/18/15: still not smoking 07/04/15 QUIT X2wks 06/23/15 0-1/d; ENCOURAGE PT TO QUIT , assess each visit 09/22/15 still not smoking 08/31/15: still not smoking but BF is 08/18/15: still not smoking 07/04/15 QUIT X2wks 06/23/15 0-1/d; ENCOURAGE PT TO QUIT , assess each visit Pelvic pain 08/31/2022 Positive RPR test 08/31/2022 Other insomnia 02/06/2022 High risk human papilloma virus (HPV) infection of cervix 02/01/2022 Gross hematuria 11/28/2021 Overview (12/13/2024): 11/07/21 Dr. Haynes Specialty note reports plans for MRI/US/cystoscopy for workup. See Scans HPV (human papilloma virus) infection 11/03/2021 Gastroesophageal reflux disease without esophagi tis 10/10/2021 Endometriosis of bladder, unspecified depth 09/16 Cocaine use disorder, severe, dependence 022 Altered mental status 08/18/2021 Elevated blood pressure reading 07/09/2021 Hypokalemia 07/09/2021 Leukocytosis 07/08/2021 Overview (12/13/2024): Last Assessment & Plan: Patient is presenting with WBC of 15.6. Given all cell lines I increased, likely hemoconcentration. However, given multiple episodes of emesis, cannot rule out aspiration. Patient also has right upper quadrant tenderness, with low-grade temperature, and acute cholecystitis, or other infectious etiologies cannot be ruled out. - Monitor off abx - CBC in AM History of drug abuse 07/07/2021 Overview (12/13/2024): Last Assessment & Plan: Continue home Suboxone Continue to assess each appt &offer Utox screen 09/22/15: no use 08/18/15: reports no use, utox neg 08/01/15: pt denies recent use/reports in program @ [facility] that monitors urine drug screens 07/04/15: pt denies current use. 04/20/15 Pt denies current use. Not taking suboxone. Continue to assess each appt &offer Utox screen 09/22/15: no use 08/18/15: reports no use, utox neg 08/01/15: pt denies recent use/reports in program @ [facility] that monitors urine drug screens 07/04/15: pt denies current use. 04/20/15 Pt denies current use. Not taking suboxone. High blood pressure 01/09/2021 Opioid withdrawal 01/09/2021 Arrhythmia 01/08/2021 Acute renal failure (ARF) 03/30/2019 Opioid use disorder, moderate, dependence 2019 Alveolar aeration decreased 06/09/2014 Ectopic with intrauterine Missed 06/08/2014 Low back pain 09/11/2012 Endometriosis of cervix 09/07/2009 Anxiety state 04/07/2008 Overview (12/13/2024): hx of Chronic pain 04/07/2008 Overview (12/13/2024): 09/22/15 no c/o 08/18/15 no change 07/04/15: worse w/work standing, has exercise info -worse w/ 02/201509/22/15 no c/o 08/18/15 no change 07/04/15: worse w/work standing, has exercise info -worse w/ 02/2015 hx of Resolved Problems Problem Noted Date Diagnosed Date Resolved Date Influenza A 03/30/2019 08/31/2022 Pulmonary congestion 03/30/2019 023 Rhabdomyolysis 03/24/2019 08/31/2022 Encounters Date Type Department Care Team Description 12/13/2024 5:20 PM EDT Office Visit [facility] [address] [id number] Jn Maharaj MD Dow, Tessy Hernandez APRN Allergic dermatitis (Primary Dx) from Last 3 Months Immunizations Immunization Administration Dates Next Due Tdap 09/02/2015,08/01/2015 Family History Relation Name Status Comments Father Alive Mother Alive Social History Tobacco Use Types Packs/Day Years Used Date Smoking Tobacco: Every Day Smokeless Tobacco: Never Tobacco Cessation:Ready to Q uit: Not Asked; Counseling Given: Not Answered Alcohol Use Standard Drinks/Week Comments No 0 (1 standard drink = 0.6 oz pur e alcohol) Comments No Sex and Gender Information Value Date Recorded Sex Assigned at Female 05/10/2022 3:17 PM EST Legal Sex Female 6:55 PM EDT Gender Identity Female 05/10/2022 3:17 PM EST Sexual Orientation Choose not to disclose 2022 3:17 PM EST Last Filed Vital Signs Vital Sign Reading Time Taken Comments Blood Pressure 119/83 12/13/2024 5:21 PM EDT Pulse 55 12/13/2024 5:21 PM EDT Temperature 37.1 C (98.7 F) 12/13/2024 5:21 PM EDT Respiratory Rate 17 12/13/2024 5:21 PM EDT Oxygen Saturation 98% 12/13/2024 5:21 PM EDT Inhaled Oxygen Concentration - - Weight 79.8 kg (176 lb) 12/13/2024 5:21 PM EDT Height 154.9 cm (5' 1 ) 12/13/2024 5:21 PM EDT Body Mass Index 33.25 12/13/2024 5:21 PM EDT Plan of Treatment Health Maintenance Due Date Last Done Comments Hepatitis C Virus Screening 1983 Hepatitis B Vaccines (1 of 3 - 19+ 3-dose series) 09/30/2002 Pneumococcal Vaccine: Pediat anjel (0-5 Years) and At-Risk Patients (6 to 49 Years) (1 of 2 - PCV) 09/30/2002 Pap Smear (Ages 21-65) 09/30/2004 Mammogram 2023 Influenza Vaccine 10/16/2024 01/15/2023, 03/02/2022 COVID-19 Vaccine (2024-2 6 season) 2024 06/13/2021, 11/16/2020 DTaP/Tdap/Td Vaccines (3 - T d or Tdap) 09/01/2025 09/02/2015, 08/01/2015 HIV Screening Completed 08/02/2022, 09/16, 01/09/2021, Additional history exists HPV Vaccines (No Doses Required) Completed Procedures Procedure Name Priority Date/Time Associated Diagnosis Comments HX OUTSIDE ORDER 12/16/2024 HIV 1/2 AG/AB CMIA REFLEX TO CONFIRMATION Routine 03/24/2019 10:32 AM EST from Last 3 Months or Most Recently Relevant to Health Maintenance Results * OUTSIDE ORDER (12/16/2024) us Scan Cardiology HX AMB PROCEDURES Final Result * HIV 1/2 Ag/Ab CMIA Reflex to Confirmation (03/24/2019 10:32 AM EST) Pathologist [facility] HIV 1/2 Ag/Ab CMIA Nonreactive Nonreactive HOSPITAL LAB Comment: Results show no evidence of infection by HIV 1/2. If clinically indicated, repeat CMIA or test by nucleic acid amplification. Performed at [facility], [place], [place] License [id number] CLIA [id number] Blood specimen (specimen) Blood specimen / Unknown 03/24/2019 10:32 AM EST 03/24/2019 11:22 AM EST us Tabatha Khan MD LAB BLOOD ORDERABLES Final Result HOSPITAL LAB from Last 3 Months or Most Recently Relevant to Health Maintenance Insurance [facility] Advance Directives * Full Code (Latest Code Status on File) Date Activated Date Inactivated Comments 03/24/2019 12:29 AM 11/18/2020 7:59 PM Care Teams Management Aide Relationship Specialty Start Date End Date Shraddha Gómez NP [address] [place] [id number] PCP - General Family Medicine 08/08/21
--- OUTSIDE RECORDS SUMMARY | 2025-02-19 19:37 | XMS_ITS | Clinical Summary ---
Author Organization [facility] Prior to 08/15/[address] [place] [id number] Care Team Providers Care Clinical Athletic Instructor Name Role Phone Chase Castro DO Primary Care Provider [phone] Allergies Active Allergy Reactions Criticality Noted Date Comments Nka 07/17/2014 Medications Medication Sig Dispensed Refills Start Date End Date Status folic acid (FOLVITE) tablet 1 mg Take 1 tablet (1 mg total) by mouth daily. 30 tablet 0 01/14/2021 Active thiamine mononitrate (THIAMINE) 100 MG tablet Take 1 tablet (100 mg total) by mouth daily. 30 tablet 0 01/14/2021 Active ondansetron (ZOFRAN-ODT) 8 MG disintegrating tablet Take 1 tablet (8 mg total) by mouth every 8 (eight) hours as needed for nausea. 20 tablet 0 01/13/2021 Active Active Problems Problem Noted Date Diagnosed Date High risk human papilloma virus (HPV) infection of cervix 02/01/2022 AMS (altered mental status) 08/18/2021 Opiate withdrawal 01/09/2021 High blood pressure 01/09/2021 Acute narcotic withdrawal 01/09/2021 Arrhythmia 01/08/2021 Chronic pain 07/17/2014 Social History Tobacco Use Types Packs/Day Years Used Date Smoking Tobacco: Former Smokeless Tobacco: Former Alcohol Use Standard Drinks/Week Comments No 0 (1 standard drink = 0.6 oz pur e alcohol) Sex and Gender Information Value Date Recorded Sex Assigned at Female 02/07/2020 9:33 PM EST Gender Identity Not on file Sexual Orientation Not on file Job Start Date Occupation Industry Not on file Not on file Not on file Last Filed Vital Signs Vital Sign Reading Time Taken Comments Blood Pressure 143/90 10/12/2022 3:59 PM EDT Pulse 60 10/12/2022 3:59 PM EDT Temperature 37.4 C (99.3 F) 10/12/2022 3:59 PM EDT Respiratory Rate 18 10/12/2022 3:59 PM EDT Oxygen Saturation 98% 10/12/2022 3:59 PM EDT Inhaled Oxygen Concentration - - Weight 76.2 kg (168 lb) 02/01/2022 11:22 AM EST Height 154.9 cm (5' 1 ) 08/19/2021 12:19 AM EDT Body Mass Index 31.74 08/19/2021 12:19 AM EDT Plan of Treatment Health Maintenance Due Date Last Done Comments Hepatitis B Vaccines (1 of 3 - 3-dose series) 1983 Depression Screening 1995 BMI Counseling 09/30/2001 Preventative Health Evaluation 09/30/2001 Cervical Cancer Screening (Pap Smear) 09/30/2004 COVID-19 Vaccine (2 - 2024-2 6 season) 2024 11/16/2020 Influenza Vaccine (#1) 2024 03/02/2022 DTap / Tdap / Td (3 - Td or Tdap) 09/01/2025 09/02/2015, 08/01/2015 Hepatitis C Screening Completed 08/02/2022 , 10/07/2021 Pneumococcal Vaccine Aged Out No long er eligible based on patient's age to complete this topic RSV Ped < 20 months Aged Out No longe r eligible based on patient's age to complete this topic Advance Directives For more information, please contact: [phone] Latest Code Status on File Code Status Date Activated Date Inactivated Comments Full Code 08/18/2021 10:22 PM 08/19/2021 10:58 PM This code status was ascertained. . Code Status History Code Status Date Activated Date Inactivated Comments Full Code 01/08/2021 7:22 PM 01/13/2021 7:16 PM Thi s code status was ascertained. Full Code 09/28/2015 6:12 PM 2015 7:14 PM This code status was ascertained in the following way: discussion with patient. Care Teams Clinical Athletic Instructor Relationship Specialty Start Date End Date Chase Castro DO [address] [facility] [address] [place] [address] PCP - General Family Medicine 11/24/21
--- OUTSIDE RECORDS SUMMARY | 2025-02-19 19:37 | XMS_ITS | Clinical Summary ---
Author Organization [facility] Address [address] [place], [place] [address] Care Team Providers Care Site Monitor Name Role Phone Pcp, No Primary Care Provider Unavailabl e Social History Tobacco Use Types Packs/Day Years Used Date Smoking Tobacco: Never Assessed Comments Unknown Sex and Gender Information Value Date Recorded Sex Assigned at Not on file Legal Sex Female 4:04 PM EST Gender Identity Not on file Sexual Orientation Not on file Plan of Treatment Health Maintenance Due Date Last Done Comments Hepatitis C Screening 1985 Lipid Panel 1985 Mammogram 1983 Annual Physical Exam 09/30/2001 Pap Smear 09/30/2004 Cervical Cancer Screening 09/30/2013 HPV/Cotest 09/30/2013 COVID-19 Vaccine (2 - 2024-2 6 season) 2024 11/16/2020 Influenza Vaccine (#1) 2024 03/02/2022 Tdap and Td Vaccines Adult 09/01/202509/01, 08/01/2015 HIB Vaccines Aged Out No longer eligi ble based on patient's age to complete this topic HPV Vaccines (No Doses Required) Completed Hepatitis A Vaccines Aged Out No long er eligible based on patient's age to complete this topic IPV Vaccines Aged Out No longer eligi ble based on patient's age to complete this topic Meningococcal Vaccine Aged Out No kranthi kaz eligible based on patient's age to complete this topic Pneumococcal Vaccine: Peds ( 0 to 5 Yrs) and At-Risk Pts (6 to 49 Yrs) Aged Out No longer eligible b ased on patient's age to complete this topic RSV <20 Months Aged Out No longer fay gible based on patient's age to complete this topic Insurance [facility] * Guarantor: ALYSSA SHIRLEY Account Type Relation to Patient Date of Phone Billing Address Third Democrat Liability Other Care Teams Site Monitor Relationship Specialty Start Date End Date Pcp, [place] [address] PCP - General 03/13/22
--- OUTSIDE RECORDS SUMMARY | 2025-02-19 19:37 | XMS_ITS | Clinical Summary ---
Author Organization [employer] Address [address] [facility] [address] [place] [address] Care Team Providers Care Freezer Worker Name Role Phone Unavailable Primary Care Provider Unavailabl e Social History Tobacco Use Types Packs/Day Years Used Date Smoking Tobacco: Never Assessed Comments Unknown Sex and Gender Information Value Date Recorded Sex Assigned at Not on file Legal Sex Female 9:25 PM EDT Gender Identity Not on file Sexual Orientation Not on file Plan of Treatment Health Maintenance Due Date Last Done Comments Depression Screening 1983 SDOH Screening 1985 Disability Screening 1983 Alcohol/Substance Use Screening 1995 Tobacco Screening 1995 Family Planning (PISQ) 09/30/1998 HPV Vaccines (1 - 3-dose series) 09/30/1998 Hepatitis C Screening 09/30/2001 Hepatitis B Vaccines (1 of 3 - 19+ 3-dose series) 09/30/2002 Pap Smear 09/30/2004 Cervical Cancer Screening 09/30/2013 HPV/Cotest 09/30/2013 Mammogram 2023 COVID-19 Vaccine (1 - 2024-2 6 season) 2024 Influenza Vaccine (#1) 2024 03/02/2022 DTaP/Tdap/Td Vaccines (3 - T d or Tdap) 09/01/2025 09/02/2015, 08/01/2015 Zoster Vaccines (1 of 2) 09/30/2033 RSV Patients and Patients Aged 60 years or older (1 - 1-dose 75+ series) 09/30/2058 HIV Screening Completed 08/02/2022, 10/07/2021 HIB Vaccines Aged Out No longer eligi ble based on patient's age to complete this topic Hepatitis A Vaccines Aged Out No long [...] 5 Years) and At-Risk Patients (6 to 49) Years Aged Out No longer eligible b ased on patient's age to complete this topic RSV under 20 months Aged Out No longe r eligible based on patient's age to complete this topic Rotavirus Vaccines Aged Out No longer eligible based on patient's age to complete this topic
--- OUTSIDE RECORDS SUMMARY | 2025-02-19 19:37 | XMS_ITS ---
Author Name [facility] Organization Unknown Results Test Name/Text Value Interpretation Date Range Source Phosphate SerPl-mCnc 2.1 mg/dL Below low normal 11/13/2024 2 .5 - 4.5 [facility] Magnesium SerPl-mCnc 2.0 mg/dL 11/13/2024 1.7 - 2. 8 [facility] Creat SerPl-mCnc 0.6 mg/dL 11/13/2024 0.5 - 1 [facility] Calcium SerPl-mCnc 8.6 mg/dL 11/13/2024 8.4 - 10.2 [facility] BUN SerPl-mCnc 10.0 mg/dL 11/13/2024 7 - 17 [facility] eGFRcr SerPlBld CKD-EPI 2020 116.0 mL/min/1.73m2 11/13/2024 - [facility] Chloride SerPl-sCnc 109.0 mmol/L Above high normal 98 - 107 [facility] CO2 SerPl-sCnc 27.0 mmol/L 11/13/2024 24 - 32 [facility] BUN/Creat SerPl 16.7 11/13/2024 12 - 20 [facility] Glucose SerPl-mCnc 121.0 mg/dL 11/13/2024 70 - 199 [facility] Sodium SerPl-sCnc 145.0 mmol/L 11/13/2024 135 - 14 5 [facility] Anion Gap SerPl Calc-sCnc 9.0 11/13/2024 5 - 14 [facility] Potassium SerPl-sCnc 3.6 mmol/L 11/13/2024 3.5 - 5 .1 [facility] MCHC RBC Auto-EntMCnc 32.7 g/dL 11/13/2024 32 - 36 [facility] RBC Auto 95.2 FL 11/13/2024 78 - 100 [facility] RDW RBC Auto 13.3 % 11/13/2024 12.1 - 16.2 [facility] RBC # Bld Auto 4.07 M/mcL Below low normal 11/13/2024 4.2 - 5.4 [facility] WBC # Bld Auto 14.0 K/mcL Above high normal 11/13/2024 4 - 1 0.5 [facility] Hct VFr Bld Auto 38.7 % 11/13/2024 37 - 47 [facility] MCH RBC Qn Auto 31.1 pcg 11/13/2024 25 - 33 [facility] Hgb Bld-mCnc 12.7 g/dL 11/13/2024 12.5 - 16 [facility] PMV Bld Auto 9.9 FL 11/13/2024 7.4 - 11.4 [facility] Platelet # Bld Auto 198.0 K/mcL 11/13/2024 150 - 4 50 [facility] Lactate Bld-sCnc 1.9 mmol/L 11/12/2024 0.5 - 2.2 C [facility] Phosphate SerPl-mCnc 2.2 mg/dL Below low normal 11/12/2024 2 .5 - 4.5 [facility] Magnesium SerPl-mCnc 2.1 mg/dL 11/12/2024 1.7 - 2. 8 [facility] Sodium SerPl-sCnc 149.0 mmol/L Above high normal 11/12/2024 135 - 145 [facility] Anion Gap SerPl Calc-sCnc 11.0 11/12/2024 5 - 14 [facility] CO2 SerPl-sCnc 24.0 mmol/L 11/12/2024 24 - 32 [facility] BUN SerPl-mCnc 14.0 mg/dL 11/12/2024 7 - 17 [facility] BUN/Creat SerPl 20.0 11/12/2024 12 - 20 [facility] Glucose SerPl-mCnc 125.0 mg/dL 11/12/2024 70 - 199 [facility] eGFRcr SerPlBld CKD-EPI 2020 112.0 mL/min/1.73m2 11/12/2024 - [facility] Creat SerPl-mCnc 0.7 mg/dL 11/12/2024 0.5 - 1 [facility] Potassium SerPl-sCnc 4.4 mmol/L 11/12/2024 3.5 - 5 .1 [facility] Calcium SerPl-mCnc 8.6 mg/dL 11/12/2024 8.4 - 10.2 [facility] Chloride SerPl-sCnc 114.0 mmol/L Above high normal 98 - 107 [facility] RDW RBC Auto 13.3 % 11/12/2024 12.1 - 16.2 [facility] MCHC RBC Auto-EntMCnc 33.1 g/dL 11/12/2024 32 - 36 [facility] Hct VFr Bld Auto 37.9 % 11/12/2024 37 - 47 [facility] MCH RBC Qn Auto 30.8 pcg 11/12/2024 25 - 33 [facility] RBC # Bld Auto 4.08 M/mcL Below low normal 11/12/2024 4.2 - 5.4 [facility] RBC Auto 92.9 FL 11/12/2024 78 - 100 [facility] Platelet # Bld Auto 212.0 K/mcL 11/12/2024 150 - 4 50 [facility] PMV Bld Auto 9.7 FL 11/12/2024 7.4 - 11.4 [facility] WBC # Bld Auto 20.7 K/mcL Above high normal 11/12/2024 4 - 1 0.5 [facility] Hgb Bld-mCnc 12.6 g/dL 11/12/2024 12.5 - 16 [facility] Lactate Bld-sCnc 1.3 mmol/L 11/12/2024 0.5 - 2.2 C [facility] Lactate Bld-sCnc 2.9 mmol/L Above high normal 11/12/2024 0.5 - 2.2 [facility] Lactate Bld-sCnc 3.7 mmol/L Above high normal 11/12/2024 0.5 - 2.2 [facility] Lactate Bld-sCnc 4.4 mmol/L Critically high 11/11/2024 0.5 - 2.2 [facility] Calcium SerPl-mCnc 9.1 mg/dL 11/11/2024 8.4 - 10.2 [facility] Sodium SerPl-sCnc 150.0 mmol/L Above high normal 11/11/2024 135 - 145 [facility] Prot SerPl-mCnc 7.1 g/dL 11/11/2024 6.4 - 8.5 [facility] ALP SerPl-cCnc 74.0 unit/L 11/11/2024 34 - 104 [facility] BUN/Creat SerPl 17.8 11/11/2024 12 - 20 [facility] Albumin SerPl-mCnc 4.2 g/dL 11/11/2024 3.5 - 5 [facility] Anion Gap SerPl Calc-sCnc 17.0 Above high normal 11/11/2024 5 - 14 [facility] Potassium SerPl-sCnc 4.3 mmol/L 11/11/2024 3.5 - 5 .1 [facility] Chloride SerPl-sCnc 111.0 mmol/L Above high normal 5 98 - 107 [facility] Creat SerPl-mCnc 0.9 mg/dL 11/11/2024 0.5 - 1 [facility] AST SerPl-cCnc 37.0 unit/L 11/11/2024 5 - 40 [facility] BUN SerPl-mCnc 16.0 mg/dL 11/11/2024 7 - 17 [facility] Bilirub SerPl-mCnc 0.8 mg/dL 11/11/2024 0.3 - 1 [facility] ALT SerPl-cCnc 36.0 unit/L 11/11/2024 7 - 52 [facility] eGFRcr SerPlBld CKD-EPI 2020 83.0 mL/min/1.73m2 11/11/2024 - [facility] Glucose SerPl-mCnc 124.0 mg/dL 11/11/2024 70 - 199 [facility] CO2 SerPl-sCnc 22.0 mmol/L Below low normal 11/11/2024 24 - 32 [facility] Sodium SerPl-sCnc 148.0 mmol/L Above high normal 11/11/2024 135 - 145 [facility] Lactate Bld-sCnc 5.0 mmol/L Critically high 11/11/2024 0.5 - 2.2 [facility] Squamous #/area UrnS HPF 15.0 /HPF Above high normal 11/11/2024 0 - 5 [facility] RBC #/area UrnS HPF 1.0 /HPF 11/11/2024 0 - 3 [facility] Glucose Ur Ql 50.0 mg/dL Abnormal 11/11/2024 - [facility] Ketones Ur-mCnc Small Abnormal 11/11/2024 - [facility] Leukocyte esterase Ur Ql Strip Negative 11/11/2024 - [facility] Hgb Ur Ql Negative 11/11/2024 - [facility] Clarity Ur Hazy Abnormal 11/11/2024 - [facility] Mucous Threads #/area UrnS HPF Present Abnormal 11/11/2024 - [facility] Sp Gr Ur 1.023 11/11/2024 1.005 - 1.03 [facility] WBC #/area UrnS HPF 1.0 /HPF 11/11/2024 0 - 5 [facility] Prot Ur Strip-mCnc 100.0 mg/dL Abnormal 11/11/2024 - [facility] Hyaline Casts #/area UrnS LPF 19.0 /LPF Above high normal 11/11/2024 - [facility] Nitrite Ur Ql Negative 11/11/2024 - [facility] Color Ur Yellow 11/11/2024 - [facility] pH Ur 5.0 pH Abnormal 11/11/2024 5 - 8 [facility] BZE Ur Ql Scn Negative 11/11/2024 - [facility] Benzodiaz Ur Ql Scn Negative 11/11/2024 - [facility] Opiates Ur Ql Scn Negative 11/11/2024 - C [facility] PCP Ur Ql Scn Negative 11/11/2024 - [facility] oxyCODONE Ur Ql Scn Negative 11/11/2024 - [facility] fentaNYL Ur Ql Positive Abnormal 11/11/2024 - [facility] Cannabinoids Ur Ql Scn Negative 11/11/2024 - [facility] Barbiturates Ur Ql Scn Negative 11/11/2024 - [facility] Amphet Ur Ql Scn Negative 11/11/2024 - [facility] Calcium SerPl-mCnc 9.4 mg/dL 11/11/2024 8.4 - 10.2 [facility] BUN SerPl-mCnc 15.0 mg/dL 11/11/2024 7 - 17 [facility] eGFRcr SerPlBld CKD-EPI 2020 65.0 mL/min/1.73m2 11/11/2024 - [facility] Glucose SerPl-mCnc 137.0 mg/dL 11/11/2024 70 - 199 [facility] Creat SerPl-mCnc 1.1 mg/dL Above high normal 11/11/2024 0.5 - 1 [facility] BUN/Creat SerPl 13.6 11/11/2024 12 - 20 [facility] Anion Gap SerPl Calc-sCnc 16.0 Above high normal 11/11/2024 5 - 14 [facility] Chloride SerPl-sCnc 104.0 mmol/L 11/11/2024 98 - 1 07 [facility] Sodium SerPl-sCnc 143.0 mmol/L 11/11/2024 135 - 14 5 [facility] Potassium SerPl-sCnc 3.7 mmol/L 11/11/2024 3.5 - 5 .1 [facility] CO2 SerPl-sCnc 23.0 mmol/L Below low normal 11/11/2024 24 - 32 [facility] Magnesium SerPl-mCnc 2.2 mg/dL 11/11/2024 1.7 - 2. 8 [facility] Lactate Bld-sCnc 4.8 mmol/L Critically high 11/11/2024 0.5 - 2.2 [facility] MCH RBC Qn Auto 30.2 pcg 11/11/2024 25 - 33 [facility] MCHC RBC Auto-EntMCnc 32.3 g/dL 11/11/2024 32 - 36 [facility] RDW RBC Auto 13.2 % 11/11/2024 12.1 - 16.2 [facility] WBC # Bld Auto 24.8 K/mcL Above high normal 11/11/2024 4 - 1 0.5 [facility] Hct VFr Bld Auto 43.6 % 11/11/2024 37 - 47 [facility] RBC # Bld Auto 4.66 M/mcL 11/11/2024 4.2 - 5.4 [facility] RBC Auto 93.5 FL 11/11/2024 78 - 100 [facility] Platelet # Bld Auto 301.0 K/mcL 11/11/2024 150 - 4 50 [facility] PMV Bld Auto 9.8 FL 11/11/2024 7.4 - 11.4 [facility] Hgb Bld-mCnc 14.1 g/dL 11/11/2024 12.5 - 16 [facility] Lactate BldV-sCnc 6.4 mmol/L Critically high 11/11/2024 0.5 - 2.2 [facility] Salicylates SerPl-mCnc <2.5 mg/dL Below low normal 11/11/2024 10 - 30 [facility] APAP SerPl-mCnc <10.0 mcg/mL Below low normal 11/11/2024 10 - 30 [facility] HCG SerPl Ql Negative 11/11/2024 - [facility] TSH SerPl DL<=0.005 mIU/L-aCnc 0.48 mcIU/mL 11/11/2024 0.45 - 5.33 [facility] Lipase SerPl-cCnc 16.0 unit/L 11/11/2024 11 - 82 [facility] Chloride SerPl-sCnc 99.0 mmol/L 11/11/2024 98 - 10 7 [facility] Albumin SerPl-mCnc 4.9 g/dL 11/11/2024 3.5 - 5 [facility] Glucose SerPl-mCnc 258.0 mg/dL Above high normal 11/11/2024 70 - 199 [facility] eGFRcr SerPlBld CKD-EPI 2020 49.0 mL/min/1.73m2 Below low normal 11/11/2024 - [facility] Sodium SerPl-sCnc 143.0 mmol/L 11/11/2024 135 - 14 5 [facility] Prot SerPl-mCnc 8.6 g/dL Above high normal 11/11/2024 6.4 - 8.5 [facility] Creat SerPl-mCnc 1.4 mg/dL Above high normal 11/11/2024 0.5 - 1 [facility] ALP SerPl-cCnc 92.0 unit/L 11/11/2024 34 - 104 [facility] BUN/Creat SerPl 10.7 Below low normal 11/11/2024 12 - 2 0 [facility] Bilirub SerPl-mCnc 0.7 mg/dL 11/11/2024 0.3 - 1 [facility] AST SerPl-cCnc 54.0 unit/L Above high normal 11/11/2024 5 - 40 [facility] ALT SerPl-cCnc 53.0 unit/L Above high normal 11/11/2024 7 - 52 [facility] BUN SerPl-mCnc 15.0 mg/dL 11/11/2024 7 - 17 [facility] Anion Gap SerPl Calc-sCnc 27.0 Above high normal 11/11/2024 5 - 14 [facility] Potassium SerPl-sCnc 3.4 mmol/L Below low normal 11/11/2024 3.5 - 5.1 [facility] CO2 SerPl-sCnc 17.0 mmol/L Below low normal 11/11/2024 24 - 32 [facility] Calcium SerPl-mCnc 10.1 mg/dL 11/11/2024 8.4 - 10. 2 [facility] Ethanol SerPl-mCnc <10.0 mg/dL 11/11/2024 0 - 10 [facility] Magnesium SerPl-mCnc 1.6 mg/dL Below low normal 11/11/2024 1 .7 - 2.8 [facility] CK SerPl-cCnc 354.0 unit/L Above high normal 11/11/2024 30 - 135 [facility] Lactate BldV-sCnc 13.0 mmol/L Critically high 11/11/2024 0.5 - 2.2 [facility] aPTT PPP 30.4 sec 11/11/2024 25 - 37 [facility] INR PPP 1.2 Above high normal 11/11/2024 0.8 - 1.1 C [facility] PT Bld 13.3 sec 11/11/2024 10.5 - 13.3 [facility] Neutrophils # Bld Auto 15.1 K/mcL Above high normal 11/11/2024 1.8 - 7.8 [facility] MCHC RBC Auto-EntMCnc 33.0 g/dL 11/11/2024 32 - 36 [facility] MCH RBC Qn Auto 31.0 pcg 11/11/2024 25 - 33 [facility] RBC Auto 93.8 FL 11/11/2024 78 - 100 [facility] RDW RBC Auto 13.2 % 11/11/2024 12.1 - 16.2 [facility] Hgb Bld-mCnc 16.4 g/dL Above high normal 11/11/2024 12.5 - 1 6 [facility] Hct VFr Bld Auto 49.5 % Above high normal 11/11/2024 37 - 47 [facility] Lymphocytes NFr Bld Auto 9.0 % Below low normal 11/11/2024 20 - 48 [facility] Basophils NFr Bld Auto 0.2 % 11/11/2024 0 - 2 [facility] WBC # Bld Auto 18.3 K/mcL Above high normal 11/11/2024 4 - 1 0.5 [facility] Eosinophil NFr Bld Auto 0.0 % 11/11/2024 0 - 6 [facility] Monocytes # Bld Auto 1.5 K/mcL Above high normal 11/11/2024 0 - 0.8 [facility] Neutrophils NFr Bld Auto 82.4 % Above high normal 11/11/2024 44 - 74 [facility] Monocytes NFr Bld Auto 8.4 % 11/11/2024 2 - 12 [facility] Platelet # Bld Auto 326.0 K/mcL 11/11/2024 150 - 4 50 [facility] Lymphocytes # Bld Auto 1.6 K/mcL 11/11/2024 1 - 3.2 [facility] RBC # Bld Auto 5.28 M/mcL 11/11/2024 4.2 - 5.4 [facility] Eosinophil # Bld Auto 0.0 K/mcL 11/11/2024 0 - 0.5 [facility] PMV Bld Auto 10.0 FL 11/11/2024 7.4 - 11.4 [facility] Basophils # Bld Auto 0.0 K/mcL 11/11/2024 0 - 0.2 [facility] Glucose SerPl-mCnc 117.0 mg/dL 10/18/2024 70 - 199 [facility] BUN SerPl-mCnc 16.0 mg/dL 10/18/2024 7 - 17 [facility] Sodium SerPl-sCnc 141.0 mmol/L 10/18/2024 135 - 14 5 [facility] Creat SerPl-mCnc 0.7 mg/dL 10/18/2024 0.5 - 1 [facility] Calcium SerPl-mCnc 8.7 mg/dL 10/18/2024 8.4 - 10.2 [facility] BUN/Creat SerPl 22.9 Above high normal 10/18/2024 12 - 20 [facility] CO2 SerPl-sCnc 27.0 mmol/L 10/18/2024 24 - 32 [facility] eGFRcr SerPlBld CKD-EPI 2020 112.0 mL/min/1.73m2 10/18/2024 - [facility] Anion Gap SerPl Calc-sCnc 8.0 10/18/2024 5 - 14 [facility] Potassium SerPl-sCnc 3.4 mmol/L Below low normal 10/18/2024 3.5 - 5.1 [facility] Chloride SerPl-sCnc 106.0 mmol/L 10/18/2024 98 - 1 07 [facility] Magnesium SerPl-mCnc 1.6 mg/dL Below low normal 10/18/2024 1 .7 - 2.8 [facility] Phosphate SerPl-mCnc 2.5 mg/dL 10/18/2024 2.5 - 4. 5 [facility] WBC # Bld Auto 12.1 K/mcL Above high normal 10/18/2024 4 - 1 0.5 [facility] RBC Auto 93.9 FL 10/18/2024 78 - 100 [facility] Hct VFr Bld Auto 37.7 % 10/18/2024 37 - 47 [facility] RBC # Bld Auto 4.01 M/mcL Below low normal 10/18/2024 4.2 - 5.4 [facility] PMV Bld Auto 10.4 FL 10/18/2024 7.4 - 11.4 [facility] MCH RBC Qn Auto 32.2 pcg 10/18/2024 25 - 33 [facility] RDW RBC Auto 13.1 % 10/18/2024 12.1 - 16.2 [facility] Platelet # Bld Auto 179.0 K/mcL 10/18/2024 150 - 4 50 [facility] MCHC RBC Auto-EntMCnc 34.2 g/dL 10/18/2024 32 - 36 [facility] Hgb Bld-mCnc 12.9 g/dL 10/18/2024 12.5 - 16 [facility] Prot Ur Strip-mCnc 30.0 mg/dL Abnormal 10/18/2024 - [facility] pH Ur 5.0 pH Abnormal 10/18/2024 5 - 8 [facility] Color Ur Amaya Abnormal 10/18/2024 - [facility] Mucous Threads #/area UrnS HPF Present Abnormal 10/18/2024 - [facility] Clarity Ur Hazy Abnormal 10/18/2024 - [facility] Nitrite Ur Ql Negative 10/18/2024 - [facility] Squamous #/area UrnS HPF >100.0 /HPF Above high normal 10/18/2024 0 - 5 [facility] Ketones Ur-mCnc Negative 10/18/2024 - [facility] WBC #/area UrnS HPF 10.0 /HPF Above high normal 10/18/2024 0 - 5 [facility] Sp Gr Ur 1.029 10/18/2024 1.005 - 1.03 [facility] Glucose Ur Ql Negative 10/18/2024 - [facility] RBC #/area UrnS HPF 3.0 /HPF 10/18/2024 0 - 3 [facility] Bacteria #/area UrnS HPF Present Abnormal 10/18/2024 - [facility] Hgb Ur Ql Negative 10/18/2024 - [facility] Leukocyte esterase Ur Ql Strip Small Abnormal 10/18/2024 - [facility] Glucose Bld-mCnc 136.0 mg/dL 10/17/2024 70 - 199 [facility] Chloride SerPl-sCnc 114.0 mmol/L Above high normal 98 - 107 [facility] Creat SerPl-mCnc 0.9 mg/dL 10/17/2024 0.5 - 1 [facility] BUN SerPl-mCnc 20.0 mg/dL Above high normal 10/17/2024 7 - 1 7 [facility] Anion Gap SerPl Calc-sCnc 10.0 10/17/2024 5 - 14 [facility] Sodium SerPl-sCnc 149.0 mmol/L Above high normal 10/17/2024 135 - 145 [facility] eGFRcr SerPlBld CKD-EPI 2020 83.0 mL/min/1.73m2 10/17/2024 - [facility] Potassium SerPl-sCnc 4.0 mmol/L 10/17/2024 3.5 - 5 .1 [facility] Calcium SerPl-mCnc 9.1 mg/dL 10/17/2024 8.4 - 10.2 [facility] Glucose SerPl-mCnc 162.0 mg/dL 10/17/2024 70 - 199 [facility] CO2 SerPl-sCnc 25.0 mmol/L 10/17/2024 24 - 32 [facility] BUN/Creat SerPl 22.2 Above high normal 10/17/2024 12 - 20 [facility] Hgb Bld-mCnc 13.2 g/dL 10/17/2024 12.5 - 16 [facility] Platelet # Bld Auto 196.0 K/mcL 10/17/2024 150 - 4 50 [facility] RBC Auto 93.8 FL 10/17/2024 78 - 100 [facility] RDW RBC Auto 13.2 % 10/17/2024 12.1 - 16.2 [facility] MCH RBC Qn Auto 31.9 pcg 10/17/2024 25 - 33 [facility] WBC # Bld Auto 21.5 K/mcL Above high normal 10/17/2024 4 - 1 0.5 [facility] MCHC RBC Auto-EntMCnc 34.0 g/dL 10/17/2024 32 - 36 [facility] RBC # Bld Auto 4.15 M/mcL Below low normal 10/17/2024 4.2 - 5.4 [facility] PMV Bld Auto 10.7 FL 10/17/2024 7.4 - 11.4 [facility] Hct VFr Bld Auto 38.9 % 10/17/2024 37 - 47 [facility] Lactate Bld-sCnc 1.7 mmol/L 10/17/2024 0.5 - 2.2 C [facility] Lactate Bld-sCnc 1.7 mmol/L 10/17/2024 0.5 - 2.2 C [facility] Lactate Bld-sCnc 3.2 mmol/L Above high normal 10/17/2024 0.5 - 2.2 [facility] Lactate Bld-sCnc 3.4 mmol/L Above high normal 10/16/2024 0.5 - 2.2 [facility] Lactate Bld-sCnc 3.4 mmol/L Above high normal 10/16/2024 0.5 - 2.2 [facility] Troponin I SerPl HS-mCnc 121.0 ng/L Critically high 10/16/2024 0 - 14 [facility] Lactate Bld-sCnc 4.2 mmol/L Critically high 10/16/2024 0.5 - 2.2 [facility] Hct VFr Bld Auto 47.8 % Above high normal 10/16/2024 37 - 47 [facility] RBC Auto 94.9 FL 10/16/2024 78 - 100 [facility] WBC # Bld Auto 25.9 K/mcL Above high normal 10/16/2024 4 - 1 0.5 [facility] RDW RBC Auto 13.2 % 10/16/2024 12.1 - 16.2 [facility] Platelet # Bld Auto 224.0 K/mcL 10/16/2024 150 - 4 50 [facility] RBC # Bld Auto 5.04 M/mcL 10/16/2024 4.2 - 5.4 [facility] PMV Bld Auto 11.0 FL 10/16/2024 7.4 - 11.4 [facility] MCHC RBC Auto-EntMCnc 32.5 g/dL 10/16/2024 32 - 36 [facility] Hgb Bld-mCnc 15.5 g/dL 10/16/2024 12.5 - 16 [facility] MCH RBC Qn Auto 30.8 pcg 10/16/2024 25 - 33 [facility] Sodium SerPl-sCnc 146.0 mmol/L Above high normal 10/16/2024 135 - 145 [facility] Chloride SerPl-sCnc 110.0 mmol/L Above high normal 98 - 107 [facility] Glucose SerPl-mCnc 177.0 mg/dL 10/16/2024 70 - 199 [facility] eGFRcr SerPlBld CKD-EPI 2020 45.0 mL/min/1.73m2 Below low normal 10/16/2024 - [facility] Anion Gap SerPl Calc-sCnc 17.0 Above high normal 10/16/2024 5 - 14 [facility] BUN/Creat SerPl 14.0 10/16/2024 12 - 20 [facility] Creat SerPl-mCnc 1.5 mg/dL Above high normal 10/16/2024 0.5 - 1 [facility] BUN SerPl-mCnc 21.0 mg/dL Above high normal 10/16/2024 7 - 1 7 [facility] Potassium SerPl-sCnc 4.0 mmol/L 10/16/2024 3.5 - 5 .1 [facility] Calcium SerPl-mCnc 10.0 mg/dL 10/16/2024 8.4 - 10. 2 [facility] CO2 SerPl-sCnc 19.0 mmol/L Below low normal 10/16/2024 24 - 32 [facility] Phosphate SerPl-mCnc 1.0 mg/dL Below low normal 10/16/2024 2 .5 - 4.5 [facility] Magnesium SerPl-mCnc 2.7 mg/dL 10/16/2024 1.7 - 2. 8 [facility] Lactate Bld-sCnc 5.3 mmol/L Critically high 10/16/2024 0.5 - 2.2 [facility] Lactate Bld-sCnc 6.6 mmol/L Critically high 10/16/2024 0.5 - 2.2 [facility] Troponin I SerPl HS-mCnc 297.0 ng/L Critically high 10/16/2024 0 - 14 [facility] Troponin I SerPl HS-mCnc 120.0 ng/L Critically high 10/16/2024 0 - 14 [facility] Procalcitonin SerPl-mCnc 0.12 ng/mL Above high normal 10/16/2024 - [facility] Magnesium SerPl-mCnc 1.6 mg/dL Below low normal 10/15/2024 1 .7 - 2.8 [facility] ALP SerPl-cCnc 89.0 unit/L 10/15/2024 34 - 104 [facility] BUN/Creat SerPl 12.0 10/15/2024 12 - 20 [facility] Bilirub SerPl-mCnc 0.8 mg/dL 10/15/2024 0.3 - 1 [facility] Creat SerPl-mCnc 1.0 mg/dL 10/15/2024 0.5 - 1 [facility] ALT SerPl-cCnc 31.0 unit/L 10/15/2024 7 - 52 [facility] eGFRcr SerPlBld CKD-EPI 2020 73.0 mL/min/1.73m2 10/15/2024 - [facility] Calcium SerPl-mCnc 10.1 mg/dL 10/15/2024 8.4 - 10. 2 [facility] Potassium SerPl-sCnc 3.3 mmol/L Below low normal 10/15/2024 3.5 - 5.1 [facility] Chloride SerPl-sCnc 101.0 mmol/L 10/15/2024 98 - 1 07 [facility] Anion Gap SerPl Calc-sCnc 21.0 Above high normal 10/15/2024 5 - 14 [facility] CO2 SerPl-sCnc 22.0 mmol/L Below low normal 10/15/2024 24 - 32 [facility] AST SerPl-cCnc 29.0 unit/L 10/15/2024 5 - 40 CT _[facility] Albumin SerPl-mCnc 5.0 g/dL 10/15/2024 3.5 - 5 [facility] Sodium SerPl-sCnc 144.0 mmol/L 10/15/2024 135 - 14 5 [facility] BUN SerPl-mCnc 12.0 mg/dL 10/15/2024 7 - 17 CT_ [facility] Prot SerPl-mCnc 8.7 g/dL Above high normal 10/15/2024 6.4 - 8.5 [facility] Glucose SerPl-mCnc 219.0 mg/dL Above high normal 10/15/2024 70 - 199 [facility] Ethanol SerPl-mCnc <10.0 mg/dL 10/15/2024 0 - 10 [facility] HCG SerPl Ql Negative 10/15/2024 - [facility] Lipase SerPl-cCnc 8.0 unit/L Below low normal 10/15/2024 11 - 82 [facility] MCHC RBC Auto-EntMCnc 32.6 g/dL 10/15/2024 32 - 36 [facility] Platelet # Bld Auto 275.0 K/mcL 10/15/2024 150 - 4 50 [facility] PMV Bld Auto 10.6 FL 10/15/2024 7.4 - 11.4 CT_[facility] RBC Auto 94.5 FL 10/15/2024 78 - 100 CT_[facility] N Neutrophils NFr Bld Auto 93.4 % Above high normal 10/15/2024 44 - 74 [facility] WBC # Bld Auto 15.5 K/mcL Above high normal 10/15/2024 4 - 1 0.5 [facility] MCH RBC Qn Auto 30.8 pcg 10/15/2024 25 - 33 CT_ [facility] Hgb Bld-mCnc 15.3 g/dL 10/15/2024 12.5 - 16 [facility] Basophils # Bld Auto 0.0 K/mcL 10/15/2024 0 - 0.2 [facility] RDW RBC Auto 12.9 % 10/15/2024 12.1 - 16.2 CT_T [facility] Basophils NFr Bld Auto 0.1 % 10/15/2024 0 - 2 [facility] Eosinophil NFr Bld Auto 0.0 % 10/15/2024 0 - 6 [facility] Monocytes # Bld Auto 0.5 K/mcL 10/15/2024 0 - 0.8 [facility] Lymphocytes # Bld Auto 0.5 K/mcL Below low normal 10/15/2024 1 - 3.2 [facility] Eosinophil # Bld Auto 0.0 K/mcL 10/15/2024 0 - 0.5 [facility] RBC # Bld Auto 4.96 M/mcL 10/15/2024 4.2 - 5.4 CT_ [facility] Monocytes NFr Bld Auto 3.5 % 10/15/2024 2 - 12 [facility] Neutrophils # Bld Auto 14.5 K/mcL Above high normal 10/15/2024 1.8 - 7.8 [facility] Lymphocytes NFr Bld Auto 3.0 % Below low normal 10/15/2024 20 - 48 [facility] Hct VFr Bld Auto 46.9 % 10/15/2024 37 - 47 CT _[facility] History of Medication Use Medication Directions Dispensed Refills Start Date End Date Status cetirizine (ZyrTEC) 10 MG tablet Take 1 tablet (10 mg total) by mouth daily. 5 active diphenhydrAMINE (BENADRYL) 50 MG tablet Take 1 tablet (50 mg total) by mouth 4 times daily (every 6 hours) as needed for itching or allergies. 5 active famotidine (PEPCID) 40 MG tablet Take 1 tablet (40 mg total) by mouth nightly. 5 active predniSONE (DELTASONE) 20 MG tablet Take 2 tablets (40 mg total) by mouth daily. 5 active hydrALAZINE (APRESOLINE) injection 5 mg 5 mg, intravenous, Every 6 hours PRN, systolic BP greater than:, BP>160/90, Starting on Sat11/13/24 at 1132 5 active diazePAM (VALIUM) solution 1 mg 1 mg, oral, Once as needed, anxiety, Starting on Sat11/13/24 at 0356, For 1 dose 5 11/14/19 completed hydrALAZINE (APRESOLINE) injection 10 mg 10 mg, intravenous, Every 6 hours PRN, systolic BP greater than:, 160/100 mmHg, Starting on Sat11/12/24 at 1757 5 11/14/19 aborted cloNIDine (CATAPRES) tablet 0.2 mg 0.2 mg, oral, Every 8 hours scheduled, First dose (after last modification) on Sat11/12/24 at 2200 08/2811/13/19 active lactated Ringer's infusion 125 mL/hr, intravenous, Continuous, Starting on Sat11/11/24 at 1745 11/13/19 aborted buprenorphine (SUBUTEX) SL tablet 4 mg 4 mg, sublingual, Every 1 hour PRN, COWS score GREATER than 12. Maximum of 3 doses., Starting on Sat11/11/24 at 0239, For 12 hours, *Give for COWS score GREATER than 12. Repeat COWS assessment in 1-hour post dose* Maximum of 3 doses may be administered over 12 hours. Notify provider if max dose of 11/12/19 completed lactated Ringer's bolus 1,000 mL 1,000 mL, intravenous, at 1,000 mL/hr, Administer over 1 Hours, Once, On Sat11/11/24 at 1010, For 1 dose 11/12/19 completed LORazepam (ATIVAN) injection 2 mg 2 mg, intravenous, Once, On Sat11/11/24 at 1400, For 1 dose, Prior to IV use, lorazepam injection should be DILUTED with an equal volume of compatible solution; Rate of administration should NOT exceed 2 mg/min. 11/12/19 completed potassium chloride (KLOR-CON M20) CR tablet 40 mEq 40 mEq, oral, Once, On Sat11/11/24 at 0042, For 1 dose, Tablet may be swallowed whole (do not crush/chew/suck on) OR broken in half and each half swallowed separately OR dissolved (whole tablet) in ~4 ounces of water (allow ~2 minutes to dissolve, stir well and administer immediately). 11/12/19 completed sodium chloride 0.9 % infusion 150 mL/hr, intravenous, Continuous, Starting on Sat11/11/24 at 0657, For 10 hours 11/12/19 aborted heparin (UFH) injection 5,000 Units 5,000 Units, subcutaneous, Every 8 hours scheduled, First dose on Sat11/11/24 at 0700, Enter Indication for use of heparin (UFH) instead of enoxaparin (LOVENOX): (free text): [email or web address], Indication: VTE Prophylaxis, Indications: Prophylaxis of Venous Thromboembolism 5 active ondansetron ODT (ZOFRAN-ODT) disintegrating tablet 4 mg [Order 1 Start] Name: ondansetron ODT (ZOFRAN-ODT) disintegrating tablet 4 mg Signed Summary: 4 mg, oral, Every 8 hours PRN, vomiting, nausea, Starting on Sat11/11/24 at 1151, -Give IV if patient is unable to take orally. -If inadequate response within 30 minutes, proceed to next-line agent or conta 5 active pantoprazole (PROTONIX) injection 40 mg 40 mg, intravenous, Administer over 2 Minutes, Every 24 hours, First dose on Sat11/11/24 at 1745, Patient MUST have BOTH: -Strict NPO (unable to take oral or liquid PPI) -Contraindication to H2RA Pantroprazole - IV push: Reconstitute powder for injection with 10 mL NS; final concentration: 4 mg/mL., 5 active cefTRIAXone (ROCEPHIN) 1 g in sterile water 10 mL IV syringe 1 g, intravenous, Administer over 3 Minutes, Every 24 hours, First dose on Sat10/18/24 at 0400, For 5 days, Do not administer simultaneously with any calcium containing solutions via a Y-site in any patient., Indication: Urinary Tract/Genitourinary 10/19/19 aborted dextrose 5 % infusion 125 mL/hr, intravenous, Continuous, Starting on Sat10/17/24 at 1115, For 12 hours 5 10/19/19 completed thiamine (VITAMIN B-1) injection 100 mg 100 mg, intravenous, Once, On Sat10/16/24 at 2245, For 1 dose, If ordered IV, push slowly over 2 minutes. 5 10/18/19 completed magnesium sulfate 2 gram/50 mL (4 %) IVPB 2 g 2 g, intravenous, at 25 mL/hr, Administer over 2 Hours, Once, On Sat10/18/24 at 0945, For 1 dose 5 10/19/19 completed buprenorphine-naloxo ne (SUBOXONE) 8-2 mg per SL tablet 1 tablet 1 tablet, sublingual, Every 12 hours, First dose (after last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
[2025-02-19 19:41] LABS: Cannabinoid Screen Urine Not Detected (Not Detect)
[2025-02-19] MEDS: Naloxone HCl Nasal TAKE HOME 4 MG SPRAY 8 MG NOSTRILALT (21:25)
--- NOTE | 2025-02-19 21:27 | PC.NURSE ---
pt verbalizes understanding d/c education, take home narcan provided with instructions on use. pt is axox4 ambulatory with steady gait. vss.
== END 2025-02-19 21:28 | disposition home or self-care (01) ==
PROVIDERS: Physician Assistant Medical; Emergency Provider Student in an Organized Health Care Education/Training Program
DX: E86.0 Dehydration (principal); I95.1 Orthostatic hypotension; F11.90 Opioid use, unspecified, uncomplicated; R10.22 Pelvic and perineal pain left side; R00.1 Bradycardia, unspecified; Z03.818 Encounter for observation for suspected exposure to other biological agents ruled out; Z51.81 Encounter for therapeutic drug level monitoring; Z79.899 Other long term (current) drug therapy
CPT/HCPCS: 36415; 71045; 80053; 80307; 81003; 82803; 82947; 83605; 83735; 84484; 84702; 85025; 87637; 93005; 96365; 96366; 99285; J7120

== ENCOUNTER → 2025-02-19 15:18 | Outpatient (BNV) | payer OTHER, MEDICAID, SELFPAY | PROVIDERS: Emergency Provider Student in an Organized Health Care Education/Training Program; Visit Provider Radiology Diagnostic Radiology | DX: R53.1 Weakness (principal) | CPT/HCPCS: 71045 ==

== ENCOUNTER → 2025-02-19 15:19 | Outpatient (BNV) | payer OTHER, MEDICAID, SELFPAY | PROVIDERS: Emergency Provider Student in an Organized Health Care Education/Training Program; Visit Provider Internal Medicine | DX: R00.1 Bradycardia, unspecified (principal) | CPT/HCPCS: 93010 ==